=== PATIENT | female | born 1930 | race Caucasian/White ===

== ENCOUNTER 2017-02-11 13:19 | Emergency (ER) | payer MEDICARE, BC ==
[2017-02-11 13:50] VITALS: BP 142/78
--- NOTE | 2017-02-11 14:31 | EDM.PDOC ---
ED HISTORY OF PRESENT ILLNESS - General Chief Complaint: Cardiovascular Problem Stated Complaint: DIZZINESS Time Seen by Provider: 02/11/17 13:35 Source: Reports: Patient History Limitations: Reports: No limitations - History of Present Illness INITIAL COMMENTS - FREE TEXT/NARRATIVE: According to patient she claims that she started feeling weak and tired around 10 am today, every time she stood up and walked would feel dizzy, but no loss of consciousness, no syncope, no chest pain or shortness of breath. No sweating or incontinence. She claims she felt very short episodes of palpitations. Her biological sciences instructor recently had told her she was in afib , during her last visit with him. Hence she is concerned and called EMT to get her to hospital. Presently she has been asymptomatic for the time she is in the emergency room, and her her heart rate is 68/min and blood pressure is 146/78mmhg. She is in sinus rhythm Symptom Onset Date: 02/11/17 Symptom Onset Time: 10:00 - Related Data Allergies/ADRs: Allergies Allergy/AdvReac Type Severity Reaction Status Date / Time No Known Allergies Allergy Verified 02/11/17 13:30 Home Meds: Home Meds Fish Oil/Coyle-3 Fatty Acids [Fish Oil 1,000 MG] 1,000 mg PO DAILY@1200 [History] Gluc/Neymar-Msm#2/C/D3/Octavio/Born [Xyygvyedat-Orsxskvlccw-SBQ] 1 each PO DAILY@ 1200 04/20/15 [History] Levothyroxine [Synthroid] 100 mcg PO ACBREAKFAST 04/20/15 [History] Multivitamin [Multi-Vitamin Daily] 1 tab PO DAILY 04/20/15 [History] Omeprazole 20 mg PO ACBREAKFAST 04/20/15 [History] Sotalol [Betapace, Sorine] 80 mg PO BID 03/04/16 [History] Aspirin [Arslan Chewable] 81 mg PO QPM 02/11/17 [History] Calcium Carbonate/Vitamin D3 [Caltrate 600+D 1500 MG-400 Units] 1 tab PO DAILY@ 0800,1200 02/11/17 [History] Docusate Sodium [Colace] 100 mg PO BID PRN 02/11/17 [History] Loratadine [Claritin] 10 mg PO DAILY PRN 02/11/17 [History] Losartan [Cozaar] 75 mg PO QPM 02/11/17 [History] Magnesium Oxide [Magnesium] 500 mg PO DAILY 02/11/17 [History] Past Medical History HEENT History: Reports: Impaired vision Other HEENT History: 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 Can't pass vision test for driving- has to wear glasses for driving but no problem reading signs etc. Cardiovascular History: Reports: Afib, Bypass, High cholesterol, Hypertension, [place] Other Cardiovascular History: Has history of aortic stenosis, history of triple bypass surgery. Implant EKG. Constricted aorta. Respiratory History: Reports: None Gastrointestinal History: Reports: Diverticulosis, Hiatal hernia Other Gastrointestinal History: History of mass at the top of her stomach, had a gastro or colon (patient not sure which), also had barium x-ray. Neither showed anything and was found to be benign. Also has diverticuli in colon. 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: Musculoskeletal History: Reports: Fracture, Osteoporosis Other Musculoskeletal History: Osteoarthritis, fx R humerous, pelvis, tear in R shoulder tendon, trigger finger middle fingers L hand starting on R Neurological History: Reports: None Psychiatric History: Reports: Anxiety Endocrine/Metabolic History: Reports: Other (see below) Other Endocrine/Metabolic History: Josseline's thryoiditis Hematologic History: Reports: Anemia, Blood transfusion(s) Other Hematologic History: Anemia has had 7 transfusions between labor and heart surgery Immunologic History: Reports: None Oncologic (Cancer) History: Reports: Other (see below) Other Oncologic History: Basal cell in L eye Dermatologic History: Reports: Other (see below) Other Dermatologic History: Basal cell was in left eye. - Infectious Disease History Infectious Disease History: Reports: Chicken pox, Measles, Mumps - Past Surgical History GI Surgical History: Reports: Colonoscopy Female Surgical History: Reports: None Neurological Surgical History: Reports: None Social & Family History - Family History Family Medical History: Noncontributory - Tobacco Use Smoking Status *Q: Never Smoker Second Hand Smoke Exposure: No - Alcohol Use Days Per Week of Alcohol Use: 1 Number of Drinks Per Day: 0 Total Drinks Per Week: 0 - Recreational Drug Use Recreational Drug Use: No ED ROS GENERAL - Review of Systems Review Of Systems: See Below Constitutional: Reports: weakness. Denies: fever, chills, diaphoresis HEENT: Denies: Rhinitis, Sinus problem Respiratory: Denies: Shortness of Breath, Wheezing, Cough, Sputum Cardiovascular: Reports: Palpitations. Denies: Chest pain, Lightheadedness GI/Abdominal: Denies: Abdominal pain, Nausea, Vomiting : Denies: discharge, dysuria Musculoskeletal: Denies: shoulder pain, joint pain, joint swelling Skin: Denies: pruritis, rash Psychiatric: Denies: Anxiety, Cravings Hematologic/Lymphatic: Denies: anemia, easy bleeding ED EXAM, GENERAL - Physical Exam Exam: See Below Exam Limited By: No limitations General Appearance: alert, WD/WN, no apparent distress Eye Exam: bilateral eye: EOMI, PERRL Ears: normal external exam, normal canal, hearing grossly normal, normal TMs Ear Exam: bilateral ear: auricle normal, canal normal, TM normal Nose: normal inspection, normal mucosa, no blood Throat/Mouth: Normal inspection, Normal lips, Normal teeth, Normal gums, Normal oropharynx, Normal voice, No airway compromise Head: atraumatic, normocephalic Neck: normal inspection, supple, non-tender, full range of motion Respiratory/Chest: no respiratory distress, lungs clear, normal breath sounds, no accessory muscle use, chest non-tender Cardiovascular: normal peripheral pulses, regular rate, rhythm, no edema, no gallop, no JVD, no rub, systolic murmur (over precardium grade 3/6) Peripheral Pulses: 2+: carotid (L), carotid (R), radial (L), radial (R) GI/Abdominal: normal bowel sounds, soft, non tender, no organomegaly, no distention, no abnormal bruit, no mass Extremities: normal inspection, normal range of motion, non-tender, normal capillary refill, no pedal edema Neurological: alert, oriented, CN II-XII intact, normal cognition, normal gait, normal reflexes, no motor/sensory deficits EKG INTERPRETATION EKG Date: 02/11/17 Rhythm: NSR Rate (beats/min): 64 [place]: normal QRS: normal ST-T: normal QT: normal Course - Vital Signs Text/Narrative:: Pt has been asymptomatic since she has been in the emergency room. Her heart rate is in 60s-70s. EKG is in NSR, with no acute changes. Vitals are stable. I really do not know if she wa having SVT episodes in the morning or what, but the rhythm from her description of feeling tired does not appear like a malignant rhythm as this episode was transient and was not asso with syncope, severe palpations, shortness or breath or chest pain , nausea, vomiting or sweating and resolved. presently her labs are normal. her tropinin is negative. Chance of acute cardiac injury is low. Pt was made to walk in the emergency room to see if she does get racing heart rate or palpations.She does have normal physiological changes in her heart rate, which is slightly blunted from her sotolol. Her calcium is low at 4.6, which does appear like a technical error, pt does not have any signs of hypocalcemia and does take 100mg calcium daily. Pt advised to increse4 dairy products for 2 wks and repeat calcium level in 2 wks. Last Recorded V/S: Last Vital Signs Temp 96.9 F 02/11/17 13:35 Pulse 64 02/11/17 13:35 Resp 18 02/11/17 13:35 BP 142/78 H 02/11/17 13:35 Pulse Ox 98 02/11/17 13:35 - Orders/Labs/Meds Orders: Active Orders 24 hr Category Date Time Status EKG Documentation Completion [RC] ASDIRECTED Care 02/11/17 14:23 Ordered Labs: Laboratory Tests 02/11/17 02/11/17 02/11/17 Range/Units 14:20 14:20 15:43 WBC 8.3 (4.0-11.0) K/uL RBC 4.75 (3.80-5.80) M/uL Hgb 10.3 L (11.5-16.5) g/dL Hct 30.6 L (37.0-47.0) % MCV 64 L (76-96) fL MCH 21.7 L (27.0-32.0) pg MCHC 33.7 (31.0-35.0) g/dL RDW 17.0 H (11.0-16.0) % Plt Count 240 (150-500) K/uL MPV 9.3 (6.0-10.0) fL Neut % (Auto) 67.2 (45.0-70.0) % Lymph % (Auto) 21.2 (20.0-40.0) % [place] % (Auto) 9.8 (3.0-10.0) % Eos % (Auto) 1.1 (1.0-5.0) % Baso % (Auto) 0.7 H (0.0-0.5) % Neut # 5.59 (2.00-7.50) K/uL Lymph # 1.77 (1.50-4.00) K/uL [place] # 0.82 H (0.20-0.80) K/uL Eos # 0.09 (0.04-0.40) K/uL Baso # 0.06 (0.02-0.10) K/uL Sodium 134 L (136-145) mmol/L Potassium 4.1 D (3.5-5.1) mmol/L Chloride 95 L (98-107) mmol/L Carbon Dioxide 27.0 (21.0-32.0) mmol/L Anion Gap 16.1 H (5.0-15.0) mmol/L BUN 15 D (8-26) mg/dL Creatinine 0.60 (0.55-1.02) mg/dL Est Cr Clr Drug Dosing TNP Estimated GFR (MDRD) > 60 (>60) MLS/MIN BUN/Creatinine Ratio 25.0 (6-25) Glucose 107 H (74-100) mg/dL Calcium 4.6 L* (8.5-10.1) mg/dL Troponin I 0.020 D (0.000-0.060) ng/mL Departure - Departure Time of Disposition: 16:00 Disposition: Home, Self-Care 01 Condition: fair Clinical Impression: Dizziness Forms: ED Department Discharge - Problem List & Annotations (1) Dizziness SNOMED Code(s): 022633855, 347669097 Code(s): R42 - DIZZINESS AND GIDDINESS Status: Acute Current Visit: Yes - Problem List Review Problem List Initiated/Reviewed/Updated: Yes - My Orders Last 24 Hours: My Active Orders 02/11/17 14:23 EKG Documentation Completion [RC] ASDIRECTED - Assessment/Plan Last 24 Hours: My Active Orders 02/11/17 14:23 EKG Documentation Completion [RC] ASDIRECTED Assessment:: Weakness with dizziness today morning Plan: Pt has been asymptomatic since she has been in the emergency room. Her heart rate is in 60s-70s. EKG is in NSR, with no acute changes. Vitals are stable. I really do not know if she wa having SVT episodes in the morning or what, but the rhythm from her description of feeling tired does not appear like a malignant rhythm as this episode was transient and was not asso with syncope, severe palpations, shortness or breath or chest pain , nausea, vomiting or sweating and resolved. presently her labs are normal. her tropinin is negative. Chance of acute cardiac injury is low. Pt was made to walk in the emergency room to see if she does get racing heart rate or palpations.She does have normal physiological changes in her heart rate, which is slightly blunted from her sotolol. Her calcium is low at 4.6, which does appear like a technical error, pt does not have any signs of hypocalcemia and does take 100mg calcium daily. Pt advised to increase dairy products for 2 wks and repeat calcium level in 2 wks.
== END 2017-02-11 16:13 | disposition home or self-care (01) ==
LOC: LB.ED 13:19
DX: R42 Dizziness and giddiness (principal); I48.91 Unspecified atrial fibrillation; E78.00 Pure hypercholesterolemia, unspecified; I25.2 Old myocardial infarction; I10 Essential (primary) hypertension; M19.90 Unspecified osteoarthritis, unspecified site; F41.9 Anxiety disorder, unspecified; Z79.82 Long term (current) use of aspirin; Z79.899 Other long term (current) drug therapy; Z86.2 Personal history of diseases of the blood and blood-forming organs and certain disorders involving the immune mechanism
CPT/HCPCS: 36415; 80047; 80048; 84484; 85025; 93005; 99284; 99285-25; A0425; A0429

== ENCOUNTER 2017-07-17 11:54 | Emergency (ER) | payer MEDICARE, BC ==
[2017-07-17] MEDS ORDERED: Aspirin 81 MG Tab.Chew PO ONE (12:12)
[2017-07-17] MEDS ORDERED: Enoxaparin 60 MG/0.6 ML Syringe SUBCUT ONE (12:17)
[2017-07-17 13:15] VITALS: BP 178/63
--- NOTE | 2017-07-20 17:10 | EDM.PDOC ---
ED HPI GENERAL MEDICAL PROBLEM - General Chief Complaint: Cardiovascular Problem Stated Complaint: Shortness of breath Time Seen by Provider: 07/17/17 11:55 Source of Information: Reports: Patient, Old Records History Limitations: Reports: No Limitations - History of Present Illness INITIAL COMMENTS - FREE TEXT/NARRATIVE: This is a pleasant 86yo F seen at the clinic for complaints of sob last night and feeling that she may . She states she feels much better today and basically normal. She was worked up in the clinic and found to have a NSTEMI. She was transferred to the ED for management and further treatment and transfer. Onset Date: 07/16/17 Duration: Day(s): Location: Reports: Chest, Generalized Severity: Moderate Improves with: Reports: None Worsens with: Reports: None Associated Symptoms: Reports: Shortness of Breath, Weakness - Related Data Allergies Allergy/AdvReac Type Severity Reaction Status Date / Time No Known Allergies Allergy Verified 02/11/17 13:30 Home Meds: Home Meds Fish Oil/[place]ills-3 Fatty Acids [Fish Oil 1,000 MG] 1,000 mg PO DAILY@1200 [History] Gluc/Neymar-Msm#2/C/D3/Octavio/Born [Maiiaapaht-Muupfllyzka-XER] 1 each PO DAILY@ 1200 04/20/15 [History] Levothyroxine [Synthroid] 100 mcg PO ACBREAKFAST 04/20/15 [History] Multivitamin [Multi-Vitamin Daily] 1 tab PO DAILY 04/20/15 [History] Omeprazole 20 mg PO ACBREAKFAST 04/20/15 [History] Calcium Carbonate/Vitamin D3 [Caltrate 600+D 1500 MG-400 Units] 1 tab PO DAILY@ 0800,1200 02/11/17 [History] Docusate Sodium [Colace] 100 mg PO BID PRN 02/11/17 [History] Losartan [Cozaar] 75 mg PO QPM 02/11/17 [History] Magnesium Oxide [Magnesium] 500 mg PO DAILY 02/11/17 [History] Ibandronate Sodium 150 mg PO DAILY 04/06/17 [History] Lactobacillus Combo No.10 [Probiotic] 1 each PO DAILY 04/06/17 [History] Sotalol [Betapace] 120 mg PO BID 07/17/17 [History] Past Medical History HEENT History: Reports: Impaired Vision Other HEENT History: 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 Can't pass vision test for driving- has to wear glasses for driving but no problem reading signs etc. Cardiovascular History: Reports: Afib, Bypass, High Cholesterol, Hypertension, [place] Other Cardiovascular History: Has history of aortic stenosis, history of triple bypass surgery. Implant EKG. Constricted aorta. Respiratory History: Reports: None Gastrointestinal History: Reports: Diverticulosis, Hiatal Hernia Other Gastrointestinal History: History of mass at the top of her stomach, had a gastro or colon (patient not sure which), also had barium x-ray. Neither showed anything and was found to be benign. Also has diverticuli in colon. 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: Musculoskeletal History: Reports: Fracture, Osteoporosis Other Musculoskeletal History: Osteoarthritis, fx R humerous, pelvis, tear in R shoulder tendon, trigger finger middle fingers L hand starting on R Neurological History: Reports: None Psychiatric History: Reports: Anxiety Endocrine/Metabolic History: Reports: Other (See Below) Other Endocrine/Metabolic History: Josseline's thryoiditis Hematologic History: Reports: Anemia, Blood Transfusion(s) Other Hematologic History: Anemia has had 7 transfusions between labor and heart surgery Immunologic History: Reports: None Oncologic (Cancer) History: Reports: Other (See Below) Other Oncologic History: Basal cell in L eye Dermatologic History: Reports: Other (See Below) Other Dermatologic History: Basal cell was in left eye. - Infectious Disease History Infectious Disease History: Reports: Chicken Pox, Measles, Mumps - Past Surgical History GI Surgical History: Reports: Colonoscopy Female Surgical History: Reports: None Neurological Surgical History: Reports: None Social & Family History - Family History Family Medical History: Noncontributory - Tobacco Use Smoking Status *Q: Never Smoker Second Hand Smoke Exposure: No - Alcohol Use Days Per Week of Alcohol Use: 1 Number of Drinks Per Day: 0 Total Drinks Per Week: 0 - Recreational Drug Use Recreational Drug Use: No ED ROS GENERAL - Review of Systems Review Of Systems: ROS reveals no pertinent complaints other than HPI. ED EXAM, GENERAL - Physical Exam Exam: See Below Exam Limited By: No Limitations General Appearance: Alert, WD/WN, No Apparent Distress Eye Exam: Bilateral Eye: EOMI, PERRL Ears: Normal External Exam Nose: Normal Inspection Throat/Mouth: Normal Inspection Head: Atraumatic, Normocephalic Neck: Normal Inspection, Supple, Non-Tender Respiratory/Chest: No Respiratory Distress, Lungs Clear, Normal Breath Sounds Cardiovascular: Normal Peripheral Pulses, Regular Rate, Rhythm GI/Abdominal: Normal Bowel Sounds Extremities: Normal Inspection Neurological: Alert, Oriented, CN II-XII Intact Course - Vital Signs Last Recorded V/S: Last Vital Signs Temp 36.9 C 07/17/17 13:11 Pulse 58 L 07/17/17 13:11 Resp 20 07/17/17 13:11 BP 178/63 H 07/17/17 13:11 Pulse Ox 100 07/17/17 13:11 - Orders/Labs/Meds Meds: Medications Discontinued Medications Generic Name Dose Route Start Last Admin Trade Name Darlyn PRN Reason Stop Dose Admin Aspirin 324 mg 07/17/17 12:12 07/17/17 12:15 Aspirin PO 07/17/17 12:13 324 mg ONETIME ONE Administration Enoxaparin Sodium 60 mg 07/17/17 12:17 07/17/17 12:35 Lovenox SUBCUT 07/17/17 12:18 60 mg ONETIME ONE Administration Departure - Departure Time of Disposition: 14:00 Disposition: DC/Tfer to Acute Hospital 02 Reason for Transfer *Q: Primary PCI Indicated Condition: Good Clinical Impression: Non-STEMI (non-ST elevated myocardial infarction) Referrals: PCP,None [Primary Care Provider] - Forms: ED Department Discharge - Problem List Review Problem List Initiated/Reviewed/Updated: Yes - Assessment/Plan Plan: Patient counseled on plan of care. Discussed with Hospitalist and accepting provider. Patient to be transferred to telemtery. Discussed plan with patient and daughter and explained process and f/u. Family agree with plan of care.
== END 2017-07-17 13:11 ==
LOC: LB.ED 11:54
DX: I21.4 Non-ST elevation (NSTEMI) myocardial infarction (principal); I10 Essential (primary) hypertension; I25.2 Old myocardial infarction; E78.00 Pure hypercholesterolemia, unspecified; M81.0 Age-related osteoporosis without current pathological fracture; M19.90 Unspecified osteoarthritis, unspecified site; Z86.2 Personal history of diseases of the blood and blood-forming organs and certain disorders involving the immune mechanism; Z85.828 Personal history of other malignant neoplasm of skin; Z98.890 Other specified postprocedural states; Z79.899 Other long term (current) drug therapy; R09.89 Other specified symptoms and signs involving the circulatory and respiratory systems; R06.02 Shortness of breath
CPT/HCPCS: 36415; 71020; 80048; 83880; 84484; 85025; 93005; 96372; 99285; A0429; A0888; A9270; J1650; A0425

== ENCOUNTER 2017-07-22 09:37 | Emergency (ER) | payer MEDICARE, BC ==
[2017-07-22] MEDS ORDERED: LORazepam 2 MG/ML MDV IVPUSH ONE (10:20)
[2017-07-22] MEDS ORDERED: Iopamidol 612 MG/ML 100 ML Bottle IV PRN (10:35)
[2017-07-22] MEDS ORDERED: Sodium Chloride 0.9% 50 ML SDV FLUSH ONE (10:36)
--- NOTE | 2017-07-22 10:44 | EDM.PDOC ---
ED HPI GENERAL MEDICAL PROBLEM - General Stated Complaint: TWITCHING ARM Time Seen by Provider: 07/22/17 09:40 Source of Information: Reports: Patient History Limitations: Reports: No Limitations - History of Present Illness INITIAL COMMENTS - FREE TEXT/NARRATIVE: According to patient she claims that she was fine until 9:15 today, when she started having sudden onset of twitching of her left upper extremity, which she claims lasted for about 7 minutes before it resolved.Pt was awake and alert all through the episode. the twitching resolved by itself. Pt called ambulance. Pt was feeling fine when the EMT arrived. Pt is here in the emergency room, she claims she has no chest pain of chest discomfort. No SOB. Appears anxious.No fever or c hills. Pt did start having significant spasms of the left upper extremity, her left arm was flexed and having contraction of the left upper extremity, but she was awake all through the episode. No nausea, vomiting. No blurry vision or double vision. Pt had NonSTEMI last sunday. She had cardiac cath last sunday.Pt was seen by her occupational therapist aide, . 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 She has been started on amiodorone, plavix, xarelto, HCTZ, norvasc since sunday ( 2 days ago). Onset: Today Onset Date: 07/22/17 Onset Time: 09:15 Associated Symptoms: Reports: Seizure. Denies: Confusion, Chest Pain, Cough, Diaphoresis, Fever/Chills, Headaches, Loss of Appetite, Malaise, Nausea/Vomiting , Rash, Shortness of Breath, Syncope, Weakness - Related Data Allergies Allergy/AdvReac Type Severity Reaction Status Date / Time No Known Allergies Allergy Verified 02/11/17 13:30 Home Meds: Home Meds Fish Oil/Plato-3 Fatty Acids [Fish Oil 1,000 MG] 1,000 mg PO DAILY@1200 [History] Gluc/Neymar-Msm#2/C/D3/Octavio/Born [Twyopklyyb-Pdzswcngscu-GTQ] 1 each PO DAILY@ 1200 04/20/15 [History] Levothyroxine [Synthroid] 100 mcg PO ACBREAKFAST 04/20/15 [History] Multivitamin [Multi-Vitamin Daily] 1 tab PO DAILY 04/20/15 [History] Omeprazole 20 mg PO ACBREAKFAST 04/20/15 [History] Calcium Carbonate/Vitamin D3 [Caltrate 600+D 1500 MG-400 Units] 1 tab PO DAILY@ 0800,1200 02/11/17 [History] Docusate Sodium [Colace] 100 mg PO BID PRN 02/11/17 [History] Losartan [Cozaar] 75 mg PO QPM 02/11/17 [History] Magnesium Oxide [Magnesium] 500 mg PO DAILY 02/11/17 [History] Ibandronate Sodium 150 mg PO DAILY 04/06/17 [History] Lactobacillus Combo No.10 [Probiotic] 1 each PO DAILY 04/06/17 [History] Sotalol [Betapace] 120 mg PO BID 07/17/17 [History] Past Medical History HEENT History: Reports: Impaired Vision Other HEENT History: 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 Can't pass vision test for driving- has to wear glasses for driving but no problem reading signs etc. Cardiovascular History: Reports: Afib, Bypass, High Cholesterol, Hypertension, [place] Other Cardiovascular History: Has history of aortic stenosis, history of triple bypass surgery. Implant EKG. Constricted aorta. Respiratory History: Reports: None Gastrointestinal History: Reports: Diverticulosis, Hiatal Hernia Other Gastrointestinal History: History of mass at the top of her stomach, had a gastro or colon (patient not sure which), also had barium x-ray. Neither showed anything and was found to be benign. Also has diverticuli in colon. 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: Reports: Musculoskeletal History: Reports: Fracture, Osteoporosis Other Musculoskeletal History: Osteoarthritis, fx R humerous, pelvis, tear in R shoulder tendon, trigger finger middle fingers L hand starting on R Neurological History: Reports: None Psychiatric History: Reports: Anxiety Endocrine/Metabolic History: Reports: Other (See Below) Other Endocrine/Metabolic History: Josseline's thryoiditis Hematologic History: Reports: Anemia, Blood Transfusion(s) Other Hematologic History: Anemia has had 7 transfusions between labor and heart surgery Immunologic History: Reports: None Oncologic (Cancer) History: Reports: Other (See Below) Other Oncologic History: Basal cell in L eye Dermatologic History: Reports: Other (See Below) Other Dermatologic History: Basal cell was in left eye. - Infectious Disease History Infectious Disease History: Reports: Chicken Pox, Measles, Mumps - Past Surgical History GI Surgical History: Reports: Colonoscopy Female Surgical History: Reports: None Neurological Surgical History: Reports: None Social & Family History - Family History Family Medical History: Noncontributory - Tobacco Use Smoking Status *Q: Never Smoker Second Hand Smoke Exposure: No - Alcohol Use Days Per Week of Alcohol Use: 1 Number of Drinks Per Day: 0 Total Drinks Per Week: 0 - Recreational Drug Use Recreational Drug Use: No ED ROS GENERAL - Review of Systems Review Of Systems: See Below Constitutional: Denies: Fever, Chills, Fatigue HEENT: Denies: Glasses, Hearing Loss, Rhinitis, Throat Pain, Throat Swelling Respiratory: Denies: Cough, Sputum Cardiovascular: Denies: Chest Pain, Edema, Lightheadedness GI/Abdominal: Denies: Abdominal Pain, Anorexia, Nausea, Vomiting : Denies: Dysuria, Flank Pain Musculoskeletal: Denies: Joint Pain, Joint Swelling Skin: Denies: Pruritis, Rash Neurological: Reports: Tremors. Denies: Confusion, Dizziness, Headache, Syncope , Tingling, Trouble Speaking, Weakness, Change in Speech, Gait Disturbance Psychiatric: Reports: Anxiety. Denies: Agitation, Confusion ED EXAM, GENERAL - Physical Exam Exam: See Below Exam Limited By: No Limitations General Appearance: Alert, WD/WN, No Apparent Distress Eye Exam: Bilateral Eye: EOMI, PERRL Ears: Normal External Exam, Normal Canal, Hearing Grossly Normal, Normal TMs Ear Exam: Bilateral Ear: Auricle Normal, Canal Normal, TM normal Nose: Normal Inspection, Normal Mucosa, No Blood Throat/Mouth: Normal Inspection, Normal Lips, Normal Teeth, Normal Gums, Normal Oropharynx, Normal Voice, No Airway Compromise Head: Atraumatic, Normocephalic Neck: Normal Inspection, Supple, Non-Tender, Full Range of Motion Respiratory/Chest: No Respiratory Distress, Lungs Clear, Normal Breath Sounds, No Accessory Muscle Use, Chest Non-Tender Cardiovascular: Normal Peripheral Pulses, Regular Rate, Rhythm, No Edema, No Gallop, No JVD, No Rub, Systolic Murmur (ejection systolic murmur in aortic area , grade 3/6, with radaition to carotids b/l) Peripheral Pulses: 2+: Radial (L), Radial (R), Dorsalis Pedis (L), Dorsalis Pedis (R) GI/Abdominal: Normal Bowel Sounds, Soft, Non-Tender, No Organomegaly, No Distention, No Abnormal Bruit, No Mass Extremities: Normal Inspection, Normal Range of Motion, Non-Tender, Normal Capillary Refill, No Pedal Edema Neurological: Alert, Oriented, CN II-XII Intact, Normal Cognition, Normal Gait, Normal Reflexes, No Motor/Sensory Deficits, Sensory/Motor Deficit (Pt carter have muscle power 4/5 in the left upper extremity.), Other (Pt did have episoe of left upper extremity clonic spasms for about 12 minutes , she waws awake and alert through the spiode. Did give 2mg ativan IV and it resolved. Pt is awake and alert post episode.) Psychiatric: Normal Affect, Anxious Skin Exam: Warm, Intact EKG INTERPRETATION EKG Date: 07/22/17 Rhythm: NSR Rate (Beats/Min): 74 [place]: LAD-Left Lockwood Deviation P-Wave: Present QRS: Normal ST-T: Normal QT: Normal Comparison: No Change Course - Vital Signs Text/Narrative:: 10:00 Am: Pt apparently is having left upper extremity localized clonic spasm. She is alert and awake all through the episode. she did receive ativan 2mg IV stat and the episode resolved. she does not have any cardiac symptoms. Apparently she has been started on several new meds( Amiodorone, plavix, xarelto , HCTZ, norvasc), 3 days ago by her occupational therapist aide. She is on on 2 new blood thinners, xarelto and palvix. Her EKG is in NSR with rate of 74/min. My concern is if she is having a small intracranial bleed with irritation involving the left upper extremity motor region. Also I have ordered electrolytes, ,CBC, troponin on this patient. Pt is stable and her vitals are stable now. 11:00 AM CBC, PT, INR, PTT. BMP shows mild decrease in sodium of 130. Her troponin is mildly elevated from her recent cardiac cath few days ago.CT head was done which does show a moderate size bleed 2.5 by 1.5 cm in the right frontal region of the brain. The cause seems to be the anticoagulation as that is the only thing to suspect at this time. There has been no trauma or fall asso. I did discuss the findings with Patient who is alert and also with her son.Patient needs to be transferred to tertiary center for further care. I did discuss with Dr. Hernandez the Emergency room physician, who does agree to accept patient. Pt will be transferred by Air ambulance through [facility] air ambulance. Pt has been neurologically and hemodynamically stable all through the emergency room care. Further care as per Dr. Hernandez. Last Recorded V/S: Last Vital Signs Temp 98 F 07/22/17 11:41 Pulse 95 07/22/17 11:41 Resp 16 07/22/17 11:41 BP 164/80 H 07/22/17 11:41 Pulse Ox 95 07/22/17 11:41 - Orders/Labs/Meds Orders: Active Orders 24 hr Category Date Time Status EKG Documentation Completion [RC] ASDIRECTED Care 07/22/17 10:23 Ordered Head wo Cont [CT] Stat Exams 07/22/17 10:55 Taken INR,PT,PROTHROMBIN TIME [COAG] Stat Lab 07/22/17 11:10 Uncollected PTT,PARTIAL THROMBOPLSTIN TIME [COAG] Stat Lab 07/22/17 11:10 Uncollected Iopamidol [Isovue-300 (61%)] Med 07/22/17 10:35 Active 100 ml IV . DIRECTED PRN Medication Orders Iopamidol (Isovue-300 (61%)) 100 ml IV . DIRECTED PRN PRN Reason: RADIOLOGY EXAM Stop: 07/23/17 10:36 Labs: Laboratory Tests 07/22/17 07/22/17 07/22/17 Range/Units 10:25 10:25 10:25 WBC 11.7 H (4.0-11.0) K/uL RBC 5.80 (3.80-5.80) M/uL Hgb 12.2 (11.5-16.5) g/dL Hct 35.7 L (37.0-47.0) % MCV 62 L (76-96) fL MCH 21.0 L (27.0-32.0) pg MCHC 34.2 (31.0-35.0) g/dL RDW 18.9 H (11.0-16.0) % Plt Count 340 (150-500) K/uL MPV 9.4 (6.0-10.0) fL Neut % (Auto) 60.5 (45.0-70.0) % Lymph % (Auto) 27.3 (20.0-40.0) % Gilchrist % (Auto) 10.5 H (3.0-10.0) % Eos % (Auto) 1.2 (1.0-5.0) % Baso % (Auto) 0.5 (0.0-0.5) % Neut # (Auto) 7.06 (2.00-7.50) K/uL Lymph # (Auto) 3.19 (1.50-4.00) K/uL Gilchrist # (Auto) 1.23 H (0.20-0.80) K/uL Eos # (Auto) 0.14 (0.04-0.40) K/uL Baso # (Auto) 0.06 (0.02-0.10) K/uL PT (9.0-11.5) sec INR (1.0-3.5) APTT (27.0-35.0) SECONDS POC Sodium 130 L (136-145) mmol/L POC Potassium 4.2 (3.5-5.1) mmol/L POC Chloride 90 L (98-109) mmol/L POC Total CO2 26.0 (23.0-30.0) mmol/L POC Anion Gap 20.0 H (5.0-15.0) mmol/L POC BUN 13 (8-26) mg/dL POC Creatinine 0.7 (0.5-1.2) mg/dL POC Glucose 121 H (74-100) mg/dL POC WB Ioniz Calcium 4.4 L (4.5-5.3) mg/dL Troponin I 0.104 H* D (0.000-0.060) ng/mL 07/22/17 Range/Units 10:25 WBC (4.0-11.0) K/uL RBC (3.80-5.80) M/uL Hgb (11.5-16.5) g/dL Hct (37.0-47.0) % MCV (76-96) fL MCH (27.0-32.0) pg MCHC (31.0-35.0) g/dL RDW (11.0-16.0) % Plt Count (150-500) K/uL MPV (6.0-10.0) fL Neut % (Auto) (45.0-70.0) % Lymph % (Auto) (20.0-40.0) % Gilchrist % (Auto) (3.0-10.0) % Eos % (Auto) (1.0-5.0) % Baso % (Auto) (0.0-0.5) % Neut # (Auto) (2.00-7.50) K/uL Lymph # (Auto) (1.50-4.00) K/uL Gilchrist # (Auto) (0.20-0.80) K/uL Eos # (Auto) (0.04-0.40) K/uL Baso # (Auto) (0.02-0.10) K/uL PT 10.6 (9.0-11.5) sec INR 1.1 (1.0-3.5) APTT 27.9 (27.0-35.0) SECONDS POC Sodium (136-145) mmol/L POC Potassium (3.5-5.1) mmol/L POC Chloride (98-109) mmol/L POC Total CO2 (23.0-30.0) mmol/L POC Anion Gap (5.0-15.0) mmol/L POC BUN (8-26) mg/dL POC Creatinine (0.5-1.2) mg/dL POC Glucose (74-100) mg/dL POC WB Ioniz Calcium (4.5-5.3) mg/dL Troponin I (0.000-0.060) ng/mL Meds: Medications Generic Name Dose Route Start Last Admin Trade Name Freq PRN Reason Stop Dose Admin Iopamidol 100 ml 07/22/17 10:35 Isovue-300 (61%) IV 07/23/17 10:36 . DIRECTED PRN RADIOLOGY EXAM Discontinued Medications Generic Name Dose Route Start Last Admin Trade Name Freq PRN Reason Stop Dose Admin Lorazepam 2 mg 07/22/17 10:20 07/22/17 10:25 Ativan IVPUSH 07/22/17 10:21 2 mg ONETIME ONE Administration Sodium Chloride 50 ml 07/22/17 10:36 Normal Saline FLUSH 07/22/17 10:37 ONETIME ONE Departure - Departure Time of Disposition: 13:00 Disposition: DC/Tfer to Acute Hospital 02 Condition: Fair Clinical Impression: Acute intra-cranial hemorrhage - Discharge Information Referrals: PCP,None [Primary Care Provider] - - Problem List & Annotations (1) Acute intra-cranial hemorrhage SNOMED Code(s): 7230208 Code(s): I62.9 - NONTRAUMATIC INTRACRANIAL HEMORRHAGE, UNSPECIFIED Status: Acute Current Visit: Yes - Problem List Review Problem List Initiated/Reviewed/Updated: Yes - My Orders Last 24 Hours: My Active Orders 07/22/17 10:23 EKG Documentation Completion [RC] ASDIRECTED 07/22/17 10:35 Iopamidol [Isovue-300 (61%)] 100 ml IV . DIRECTED PRN 07/22/17 10:55 Head wo Cont [CT] Stat 07/22/17 11:10 INR,PT,PROTHROMBIN TIME [COAG] Stat PTT,PARTIAL THROMBOPLSTIN TIME [COAG] Stat - Assessment/Plan Last 24 Hours: My Active Orders 07/22/17 10:23 EKG Documentation Completion [RC] ASDIRECTED 07/22/17 10:35 Iopamidol [Isovue-300 (61%)] 100 ml IV . DIRECTED PRN 07/22/17 10:55 Head wo Cont [CT] Stat 07/22/17 11:10 INR,PT,PROTHROMBIN TIME [COAG] Stat PTT,PARTIAL THROMBOPLSTIN TIME [COAG] Stat Assessment:: Acute right frontal intracranial bleed Plan: 10:00 Am: Pt apparently is having left upper extremity localized clonic spasm. She is alert and awake all through the episode. she did receive ativan 2mg IV stat and the episode resolved. she does not have any cardiac symptoms. Apparently she has been started on several new meds( Amiodorone, plavix, xarelto , HCTZ, norvasc), 3 days ago by her occupational therapist aide. She is on on 2 new blood thinners, xarelto and palvix. Her EKG is in NSR with rate of 74/min. My concern is if she is having a small intracranial bleed with irritation involving the left upper extremity motor region. Also I have ordered electrolytes, ,CBC, troponin on this patient. Pt is stable and her vitals are stable now. 11:00 AM CBC, PT, INR, PTT. BMP shows mild decrease in sodium of 130. Her troponin is mildly elevated from her recent cardiac cath few days ago.CT head was done which does show a moderate size bleed 2.5 by 1.5 cm in the right frontal region of the brain. The cause seems to be the anticoagulation as that is the only thing to suspect at this time. There has been no trauma or fall asso. I did discuss the findings with Patient who is alert and also with her son.Patient needs to be transferred to tertiary center for further care. I did discuss with Dr. Hernandez the Emergency room physician at [facility], who does agree to accept patient. Pt will be transferred by Air ambulance through [facility] air ambulance. Pt has been neurologically and hemodynamically stable all through the emergency room care. Further care as per Dr. Hernandez.
[2017-07-22 11:42] VITALS: BP 164/80
--- NOTE | 2017-07-23 08:01 | CT ---
DATE OF SERVICE: 07/22/17 CLINICAL DATA: Left hand monoclonal UNENHANCED BRAIN CT: Multislice acquisition through the brain without IV contrast was performed. Comparison is made to a prior exam dated 09/18/16. There is an area of parenchymal hemorrhage within the right parietal region measuring 2.5 cm in its maximum diameter. There is also blood density material within the adjacent sulci. Minimal mass effect associated with this. The exam is otherwise unchanged from the prior. IMPRESSION: Intraparenchymal hemorrhage on the right with adjacent subarachnoid bleed. Minimal mass effect associated with this. The patient's physician was notified of the findings by telephone and by [facility] preliminary radiology report. [id number] [facility]
== END 2017-07-22 14:38 ==
LOC: LB.ED 09:37
DX: I62.9 Nontraumatic intracranial hemorrhage, unspecified (principal); M19.90 Unspecified osteoarthritis, unspecified site; I48.91 Unspecified atrial fibrillation; E78.00 Pure hypercholesterolemia, unspecified; I10 Essential (primary) hypertension; I25.2 Old myocardial infarction; M81.0 Age-related osteoporosis without current pathological fracture; F41.9 Anxiety disorder, unspecified; Z79.899 Other long term (current) drug therapy; Z86.79 Personal history of other diseases of the circulatory system
CPT/HCPCS: 36415; 70450; 80047; 84484; 85025; 85610; 85730; 93005; 96374; 99285; A0425; A0429; J2060

== ENCOUNTER 2017-07-25 08:38 | Inpatient (IN) | payer MEDICARE, BC ==
--- NOTE | 2017-07-25 17:44 | PCM.HP ---
H&P History of Present Illness - General Date of Service: 07/25/17 Admit Problem/Dx: Admission Diagnosis/Problem Admission Diagnosis/Problem Cerebral hemorrhage Source of Information: Patient History Limitations: Reports: No Limitations - History of Present Illness Initial Comments - Free Text/Narative: Pt is a pleasant 86 year old female who is admitted under swing bed level of care for physical , occupational and speech therapy. Pt was seen at [facility] for right intracerebral bleed, and was transferred to [facility] for acute monitoring. Apparently patient has had uneventful hospitalization. No more episodes of focal seizures and the bleed has not progressed. hence patient was discharged today and is admitted here for rehabilitation. Pt's xarelta, plavix and aspirin are stopped presently. has been started on Keppra for seizure prevention. Pt claims she feels fine. no headache, nausea or vomiting. Feels tired from the travel. - Related Data Allergies/Adverse Reactions: Allergies Allergy/AdvReac Type Severity Reaction Status Date / Time No Known Allergies Allergy Verified 07/25/17 13:54 Home Medications: Home Meds Levothyroxine [Synthroid] 100 mcg PO ACBREAKFAST 04/20/15 [History] Multivitamin [Multi-Vitamin Daily] 1 tab PO DAILY 04/20/15 [History] Omeprazole 20 mg PO ACBREAKFAST 04/20/15 [History] Docusate Sodium [Colace] 100 mg PO BEDTIME PRN 02/11/17 [History] Losartan [Cozaar] 50 mg PO BID 02/11/17 [History] Magnesium Oxide [Magnesium] 500 mg PO DAILY 02/11/17 [History] Amiodarone [Cordarone] 200 mg PO DAILY 07/22/17 [History] Hydrochlorothiazide 12.5 mg PO DAILY 07/22/17 [History] amLODIPine [Norvasc] 5 mg PO DAILY 07/22/17 [History] atorvaSTATin [Lipitor] 40 mg PO BEDTIME 07/22/17 [History] Calcium Carbonate [Calcium] 600 mg PO DAILY 07/25/17 [History] Ibandronate [Boniva] 150 mg PO DAILY 07/25/17 [History] Nitroglycerin 0.4 mg SL TID PRN 07/25/17 [History] Simvastatin [Zocor] 80 mg PO BEDTIME 07/25/17 [History] levETIRAcetam [Keppra] 500 mg PO BID 07/25/17 [History] Past Medical History HEENT History: Reports: Impaired Vision Other HEENT History: 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 Can't pass vision test for driving- has to wear glasses for driving but no problem reading signs etc. Cardiovascular History: Reports: Afib, Bypass, High Cholesterol, Hypertension, [place] Other Cardiovascular History: Has history of aortic stenosis, history of triple bypass surgery. Implant EKG. Constricted aorta. Respiratory History: Reports: None Gastrointestinal History: Reports: Diverticulosis, Hiatal Hernia Other Gastrointestinal History: History of mass at the top of her stomach, had a gastro or colon (patient not sure which), also had barium x-ray. Neither showed anything and was found to be benign. Also has diverticuli in colon. Genitourinary History: Reports: None ELDERLY COMPANION History: Reports: Musculoskeletal History: Reports: Fracture, Osteoporosis Other Musculoskeletal History: Osteoarthritis, fx R humerous, pelvis, tear in R shoulder tendon, trigger finger middle fingers L hand starting on R Neurological History: Reports: None Psychiatric History: Reports: Anxiety Endocrine/Metabolic History: Reports: Other (See Below) Other Endocrine/Metabolic History: Josseline's thryoiditis Hematologic History: Reports: Anemia, Blood Transfusion(s) Other Hematologic History: Anemia has had 7 transfusions between labor and heart surgery. Thalassanemia/thalassemia Immunologic History: Reports: None Oncologic (Cancer) History: Reports: Other (See Below) Other Oncologic History: Basal cell in L eye Dermatologic History: Reports: Other (See Below) Other Dermatologic History: Basal cell was in left eye. - Infectious Disease History Infectious Disease History: Reports: Chicken Pox, Measles, Mumps - Past Surgical History GI Surgical History: Reports: Colonoscopy Female Surgical History: Reports: None Neurological Surgical History: Reports: None Social & Family History - Family History Family Medical History: Noncontributory - Tobacco Use Smoking Status *Q: Never Smoker Second Hand Smoke Exposure: No - Caffeine Use Caffeine Use: Reports: Coffee Other Caffeine Use: decafinated 1-2 cups for breakfast - Alcohol Use Days Per Week of Alcohol Use: 1 Number of Drinks Per Day: 0 Total Drinks Per Week: 0 - Recreational Drug Use Recreational Drug Use: No H&P Review of Systems - Review of Systems: Review Of Systems: See Below General: Denies: Fever, Chills HEENT: Denies: Sore Throat, Visual Changes Pulmonary: Denies: Cough, Sputum Cardiovascular: Denies: Chest Pain, Palpitations, Lightheadedness Gastrointestinal: Denies: Abdominal Pain, Nausea, Vomiting Genitourinary: Denies: Frequency, Burning Musculoskeletal: Denies: Joint Pain, Joint Swelling Skin: Denies: Pruritis, Rash Psychiatric: Denies: Confusion Neurological: Denies: Confusion, Dizziness, Numbness, Tingling, Gait Disturbance Exam - Exam Exam: See Below - Vital Signs Vital Signs: Last Vital Signs Temp 98.4 F 07/25/17 11:36 Pulse 76 07/25/17 11:36 Resp BP 156/66 H 07/25/17 11:36 Pulse Ox 98 07/25/17 11:36 Weight: 57.153 kg - Exam General: Alert, Oriented, Cooperative HEENT: PERRLA, Hearing Intact, Mucosa Moist & [place], Nares Patent, Normal Nasal Septum, Posterior Pharynx Clear, Conjunctiva Clear, EOMI, EACs Clear, TMs Clear Neck: Supple, Trachea Midline, 2 Lungs: Clear to Auscultation, Normal Respiratory Effort Cardiovascular: Regular Rate, Systolic Murmur (aortic area 3/6 grade) GI/Abdominal Exam: Normal Bowel Sounds, Soft, Non-Tender, No Organomegaly, No Distention, No Abnormal Bruit, No Mass, Pelvis Stable Extremities: Normal Inspection, Normal Range of Motion, Non-Tender, No Pedal Edema, Normal Capillary Refill Peripheral Pulses: 2+: Radial (L), Radial (R) Skin: Warm, Dry, Intact Neurological: Cranial Nerves Intact, Reflexes Equal Bilateral Neuro Extensive - Mental Status: Alert, Oriented x3, Normal Mood/Affect, Normal Cognition, Memory Intact Neuro Extensive - Motor, Sensory, Reflexes: CN II-XII Intact, Normal Gait, Normal Reflexes Psychiatric: Alert, Normal Affect, Normal Mood *Q Meaningful Use (ADM) - VTE *Q VTE Criteria *Q: - Stroke *Q Stroke Criteria *Q: - AMI *Q AMI Criteria *Q: - Problem List (1) Acute intra-cranial hemorrhage SNOMED Code(s): 7376277 ICD Code: I62.9 - NONTRAUMATIC INTRACRANIAL HEMORRHAGE, UNSPECIFIED Status : Acute Current Visit: No Problem List Initiated/Reviewed/Updated: Yes Orders Last 24hrs: Active Orders 24 hr Category Date Time Status Admission Status [Patient Status] [ADT] Routine ADT 07/25/17 12:45 Active CULTURE MRSA SURVEY [RM] Routine Lab 07/25/17 Received Assessment/Plan Comment:: Assessment: Right fronto-parietal intracranial bleed Patient has been doing well. Plan is to start rehab. Pt has good rehab potential. Once she is at her baseline will plan of discharge. Will keep her off anti-platelet therapy for now, Continue discharge meds and Keppra. She does have followup appointment with Dr. Larry (neurosurgeon) on 08/07/17 at 2 Pm. will followup with her recommendations.
[2017-07-25] MEDS ORDERED: Tuberculin, PPD 5 Units/0.1 ML 1 ML MDV IDERM ONE (17:48)
[2017-07-25] MEDS ORDERED: Nitroglycerin 0.4 MG Tab.SL SL PRN (17:51)
[2017-07-25] MEDS: levETIRAcetam 500 MG Tab PO SCH (19:35)
[2017-07-25] MEDS: Losartan 50 MG Tab PO SCH (19:35)
[2017-07-26] MEDS: atorvaSTATin 40 MG Tab PO SCH ×2 (05:35→20:11)
[2017-07-26] MEDS: Omeprazole 20 MG Cap.CR PO SCH (06:49)
[2017-07-26] MEDS: Levothyroxine 100 MCG Tab PO SCH (06:50)
[2017-07-26] MEDS ORDERED: IBANDRONATE 150 MG PO SCH (08:00)
[2017-07-26] MEDS: Calcium Carbonate 600 MG Tab PO SCH (08:22)
[2017-07-26] MEDS: Amiodarone 200 MG Tab PO SCH (08:22)
[2017-07-26] MEDS: Losartan 50 MG Tab PO SCH ×2 (08:23→20:08)
[2017-07-26] MEDS: amLODIPine 5 MG Tab PO SCH (08:24)
[2017-07-26] MEDS: levETIRAcetam 500 MG Tab PO SCH ×2 (08:24→20:11)
[2017-07-26] MEDS: Multivitamins with Iron/Calcium/Folic Acid/Minerals Tab PO SCH (08:24)
[2017-07-26] MEDS: Hydrochlorothiazide 12.5 MG Cap PO SCH (08:24)
[2017-07-26] MEDS: MAGNESIUM 500 MG PO SCH (09:44)
[2017-07-27] MEDS: Levothyroxine 100 MCG Tab PO SCH (07:30)
[2017-07-27] MEDS: Omeprazole 20 MG Cap.CR PO SCH (07:30)
[2017-07-27] MEDS: MAGNESIUM 500 MG PO SCH (08:16)
[2017-07-27] MEDS: Hydrochlorothiazide 12.5 MG Cap PO SCH (08:17)
[2017-07-27] MEDS: Calcium Carbonate 600 MG Tab PO SCH (08:17)
[2017-07-27] MEDS: Docusate Sodium 100 MG Cap PO PRN ×2 (08:17→20:09)
[2017-07-27] MEDS: Losartan 50 MG Tab PO SCH ×2 (08:17→20:08)
[2017-07-27] MEDS: levETIRAcetam 500 MG Tab PO SCH ×2 (08:18→20:09)
[2017-07-27] MEDS: amLODIPine 5 MG Tab PO SCH (08:22)
[2017-07-27] MEDS: Amiodarone 200 MG Tab PO SCH (08:22)
[2017-07-27] MEDS: Multivitamins with Iron/Calcium/Folic Acid/Minerals Tab PO SCH (08:23)
[2017-07-27] MEDS: atorvaSTATin 40 MG Tab PO SCH (20:09)
[2017-07-28] MEDS: Omeprazole 20 MG Cap.CR PO SCH (06:44)
[2017-07-28] MEDS: Levothyroxine 100 MCG Tab PO SCH (06:44)
[2017-07-28] MEDS: levETIRAcetam 500 MG Tab PO SCH ×2 (08:24→19:41)
[2017-07-28] MEDS: Calcium Carbonate 600 MG Tab PO SCH (08:24)
[2017-07-28] MEDS: amLODIPine 5 MG Tab PO SCH (08:24)
[2017-07-28] MEDS: Amiodarone 200 MG Tab PO SCH (08:24)
[2017-07-28] MEDS: Hydrochlorothiazide 12.5 MG Cap PO SCH (08:24)
[2017-07-28] MEDS: Multivitamins with Iron/Calcium/Folic Acid/Minerals Tab PO SCH (08:24)
[2017-07-28] MEDS: MAGNESIUM 500 MG PO SCH (08:30)
[2017-07-28] MEDS: Losartan 50 MG Tab PO SCH ×2 (08:32→19:40)
[2017-07-28] MEDS: atorvaSTATin 40 MG Tab PO SCH (19:40)
[2017-07-29] MEDS: Levothyroxine 100 MCG Tab PO SCH (06:47)
[2017-07-29] MEDS: Omeprazole 20 MG Cap.CR PO SCH (06:47)
[2017-07-29] MEDS: amLODIPine 5 MG Tab PO SCH (08:34)
[2017-07-29] MEDS: levETIRAcetam 500 MG Tab PO SCH ×2 (08:34→19:38)
[2017-07-29] MEDS: Calcium Carbonate 600 MG Tab PO SCH (08:34)
[2017-07-29] MEDS: Hydrochlorothiazide 12.5 MG Cap PO SCH (08:35)
[2017-07-29] MEDS: Losartan 50 MG Tab PO SCH ×2 (08:35→19:38)
[2017-07-29] MEDS: Amiodarone 200 MG Tab PO SCH (08:35)
[2017-07-29] MEDS: Multivitamins with Iron/Calcium/Folic Acid/Minerals Tab PO SCH (08:35)
[2017-07-29] MEDS ORDERED: Bisacodyl 10 MG Supp RECTAL ONE (15:41)
[2017-07-29] MEDS: atorvaSTATin 40 MG Tab PO SCH (19:38)
[2017-07-30] MEDS: Omeprazole 20 MG Cap.CR PO SCH (06:45)
[2017-07-30] MEDS: Levothyroxine 100 MCG Tab PO SCH (06:45)
[2017-07-30] MEDS: Losartan 50 MG Tab PO SCH ×2 (08:45→19:51)
[2017-07-30] MEDS: Hydrochlorothiazide 12.5 MG Cap PO SCH (08:46)
[2017-07-30] MEDS: Calcium Carbonate 600 MG Tab PO SCH (08:46)
[2017-07-30] MEDS: levETIRAcetam 500 MG Tab PO SCH ×2 (08:47→19:51)
[2017-07-30] MEDS: Multivitamins with Iron/Calcium/Folic Acid/Minerals Tab PO SCH (08:47)
[2017-07-30] MEDS: amLODIPine 5 MG Tab PO SCH (08:53)
[2017-07-30] MEDS: Amiodarone 200 MG Tab PO SCH (08:53)
[2017-07-30] MEDS: MAGNESIUM 500 MG PO SCH ×2 (09:05→15:30)
[2017-07-30] MEDS ORDERED: Magnesium Hydroxide 400 MG/5 ML Susp 30 ML Cup ONE (18:42)
[2017-07-30] MEDS ORDERED: Magnesium Hydroxide 400 MG/5 ML Susp 30 ML Cup PO ONE (19:13)
[2017-07-30] MEDS: atorvaSTATin 40 MG Tab PO SCH (19:49)
[2017-07-31] MEDS: Omeprazole 20 MG Cap.CR PO SCH (06:14)
[2017-07-31] MEDS: Levothyroxine 100 MCG Tab PO SCH (06:14)
[2017-07-31] MEDS: MAGNESIUM 500 MG PO SCH (08:15)
[2017-07-31] MEDS: amLODIPine 5 MG Tab PO SCH (08:15)
[2017-07-31] MEDS: Multivitamins with Iron/Calcium/Folic Acid/Minerals Tab PO SCH (08:16)
[2017-07-31] MEDS: Losartan 50 MG Tab PO SCH ×2 (08:16→19:30)
[2017-07-31] MEDS: Hydrochlorothiazide 12.5 MG Cap PO SCH (08:17)
[2017-07-31] MEDS: levETIRAcetam 500 MG Tab PO SCH ×2 (08:17→19:29)
[2017-07-31] MEDS: Amiodarone 200 MG Tab PO SCH (08:18)
[2017-07-31] MEDS: Calcium Carbonate 600 MG Tab PO SCH (08:18)
[2017-07-31] MEDS: atorvaSTATin 40 MG Tab PO SCH (19:33)
[2017-08-01] MEDS: Omeprazole 20 MG Cap.CR PO SCH (07:15)
[2017-08-01] MEDS: Levothyroxine 100 MCG Tab PO SCH (07:15)
[2017-08-01] MEDS: levETIRAcetam 500 MG Tab PO SCH ×2 (08:56→20:36)
[2017-08-01] MEDS: Calcium Carbonate 600 MG Tab PO SCH (08:57)
[2017-08-01] MEDS: Amiodarone 200 MG Tab PO SCH (08:57)
[2017-08-01] MEDS: Hydrochlorothiazide 12.5 MG Cap PO SCH (08:58)
[2017-08-01] MEDS: Losartan 50 MG Tab PO SCH ×2 (08:58→20:36)
[2017-08-01] MEDS: Multivitamins with Iron/Calcium/Folic Acid/Minerals Tab PO SCH (08:59)
[2017-08-01] MEDS: amLODIPine 5 MG Tab PO SCH (08:59)
[2017-08-01] MEDS: MAGNESIUM 500 MG PO SCH (09:04)
[2017-08-01] MEDS: atorvaSTATin 40 MG Tab PO SCH (20:36)
[2017-08-02] MEDS: Levothyroxine 100 MCG Tab PO SCH (06:53)
[2017-08-02] MEDS: Omeprazole 20 MG Cap.CR PO SCH (06:53)
[2017-08-02] MEDS: levETIRAcetam 500 MG Tab PO SCH ×2 (08:38→19:50)
[2017-08-02] MEDS: MAGNESIUM 500 MG PO SCH (08:38)
[2017-08-02] MEDS: Calcium Carbonate 600 MG Tab PO SCH (08:47)
[2017-08-02] MEDS: amLODIPine 5 MG Tab PO SCH (08:47)
[2017-08-02] MEDS: Losartan 50 MG Tab PO SCH ×2 (08:47→19:47)
[2017-08-02] MEDS: Multivitamins with Iron/Calcium/Folic Acid/Minerals Tab PO SCH (08:47)
[2017-08-02] MEDS: Amiodarone 200 MG Tab PO SCH (08:48)
[2017-08-02] MEDS: Hydrochlorothiazide 12.5 MG Cap PO SCH (08:48)
[2017-08-02] MEDS: Ciprofloxacin 500 MG Tab PO SCH (19:47)
[2017-08-02] MEDS: atorvaSTATin 40 MG Tab PO SCH (19:50)
[2017-08-03] MEDS: Omeprazole 20 MG Cap.CR PO SCH (06:49)
[2017-08-03] MEDS: Levothyroxine 100 MCG Tab PO SCH (06:49)
[2017-08-03] MEDS: Ciprofloxacin 500 MG Tab PO SCH ×2 (07:26→20:15)
[2017-08-03] MEDS: Multivitamins with Iron/Calcium/Folic Acid/Minerals Tab PO SCH (07:26)
[2017-08-03] MEDS: levETIRAcetam 500 MG Tab PO SCH ×2 (07:26→20:15)
[2017-08-03] MEDS: Losartan 50 MG Tab PO SCH ×2 (07:26→20:14)
[2017-08-03] MEDS: Calcium Carbonate 600 MG Tab PO SCH (07:26)
[2017-08-03] MEDS: Hydrochlorothiazide 12.5 MG Cap PO SCH (07:26)
[2017-08-03] MEDS: MAGNESIUM 500 MG PO SCH (07:27)
[2017-08-03] MEDS: Amiodarone 200 MG Tab PO SCH (07:27)
[2017-08-03] MEDS: amLODIPine 5 MG Tab PO SCH (07:27)
--- NOTE | 2017-08-03 11:22 | PCM.PN ---
- General Info Date of Service: 08/03/17 Subjective Update: Pt is a 87 year female with recent right intracerebral bleed with focal seizure. She has been on Keppra. She has been doing well, has been imrpoving with ambulation and daily activities. Pt had frequent urination and had UA done yesterday. Has been feeding well. Pt is concerned about her left arm going weak on and off for few minutes and regains complete strength in it. has not happened in the past 24 hrs now. No other complaints. Functional Status: Reports: Pain Controlled, Tolerating Diet, Ambulating, Urinating - Review of Systems General: Denies: Fever, Fatigue, Chills HEENT: Denies: Headaches Pulmonary: Denies: Sputum, Hemoptysis Cardiovascular: Denies: Chest Pain, Lightheadedness Gastrointestinal: Denies: Abdominal Pain, Nausea, Vomiting Genitourinary: Reports: Dysuria, Frequency Musculoskeletal: Denies: Joint Pain, Joint Swelling Skin: Denies: Pruritis, Rash Neurological: Reports: Weakness. Denies: Confusion, Dizziness, Headache, Numbness, Paresthesia, Tingling - Patient Data Vitals - Most Recent: Last Vital Signs Temp 98 F 08/03/17 09:13 Pulse 71 08/03/17 09:13 Resp 18 08/03/17 09:13 BP 114/68 08/03/17 09:13 Pulse Ox 100 08/03/17 09:13 Weight - Most Recent: 55.849 kg Lab Results Last 24 Hours: Laboratory Results - last 24 hr 08/02/17 Range/Units 11:44 Urine Color Yellow Urine Appearance Slightly cloudy (CLEAR) Urine pH 7.0 (5.0-8.0) Ur Specific [place] 1.015 (1.003-1.030) Urine Protein Negative (NEGATIVE) mg/dL Urine Glucose (UA) Negative (NEGATIVE) mg/dL Urine Ketones Negative (NEGATIVE) mg/dL Urine Occult Blood Trace-lysed H (NEGATIVE) Urine Nitrite Negative (NEGATIVE) Urine Bilirubin Negative (NEGATIVE) Urine Urobilinogen 0.2 (0.2-1.0) E.U./dL Ur Leukocyte Esterase Moderate H (NEGATIVE) Urine RBC 5-10 H /HPF Urine WBC 40-50 H /HPF Urine WBC Clumps Moderate /HPF Ur Squamous Epith Cells Moderate /HPF Urine Bacteria Moderate H /HPF Med Orders - Current: Current Medications Amiodarone HCl (Cordarone) 200 mg PO DAILY [facility] Last Admin: 08/03/17 07:27 Dose: 200 mg Amlodipine Besylate (Norvasc) 5 mg PO DAILY [facility] Last Admin: 08/03/17 07:27 Dose: 5 mg Atorvastatin Calcium (Lipitor) 40 mg PO BEDTIME [facility] Last Admin: 08/02/17 19:50 Dose: 40 mg Calcium Carbonate/Glycine (Calcium Carbonate) 600 mg PO DAILY [facility] Last Admin: 08/03/17 07:26 Dose: 600 mg Ciprofloxacin (Ciprofloxacin Hcl) 500 mg PO BID [facility] Stop: 08/09/17 08:01 Last Admin: 08/03/17 07:26 Dose: 500 mg Docusate Sodium (Colace) 100 mg PO BEDTIME PRN PRN Reason: Constipation Last Admin: 07/27/17 20:09 Dose: 100 mg Hydrochlorothiazide (Hydrochlorothiazide) 12.5 mg PO DAILY [facility] Last Admin: 08/03/17 07:26 Dose: 12.5 mg Levetiracetam (Keppra) 500 mg PO BID [facility] Last Admin: 08/03/17 07:26 Dose: 500 mg Levothyroxine Sodium (Synthroid) 100 mcg PO ACBREAKFAST [facility] Last Admin: 08/03/17 06:49 Dose: 100 mcg Losartan Potassium (Cozaar) 50 mg PO BID [facility] Last Admin: 08/03/17 07:26 Dose: 50 mg Multivitamins/Minerals (Thera M Plus) 1 tab PO DAILY [facility] Last Admin: 08/03/17 07:26 Dose: 1 tab Nitroglycerin (Nitrostat) 0.4 mg SL TID PRN PRN Reason: chest pain Ibandronate [Boniva] (150mg) 150 mg PO .monthly [facility] Last Admin: 07/27/17 07:01 Dose: 150 mg Magnesium 500mg (Tablet) 500 each PO DAILY [facility] Last Admin: 08/03/17 07:27 Dose: 500 each Omeprazole (Omeprazole) 20 mg PO ACBREAKFAST [facility] Last Admin: 08/03/17 06:49 Dose: 20 mg Senna/Docusate Sodium (Senna Plus) 1 tab PO BID [facility] Last Admin: 08/03/17 07:27 Dose: 1 tab Tuberculin PPD (Aplisol) 5 unit IDERM ONETIME [facility] Discontinued Medications Bisacodyl (Dulcolax) 10 mg RECTAL ONETIME ONE Stop: 07/29/17 15:42 Last Admin: 07/29/17 15:48 Dose: 10 mg Magnesium Hydroxide (Milk Of Magnesia) Confirm Administered Dose 30 ml .ROUTE .STK-MED ONE Stop: 07/30/17 18:43 Last Admin: 07/30/17 19:55 Dose: Not Given Magnesium Hydroxide (Milk Of Magnesia) 30 ml PO ONETIME ONE Stop: 07/30/17 19:14 Last Admin: 07/30/17 20:00 Dose: Not Given Magnesium Oxide (Magnesium Oxide) 500 mg PO DAILY [facility] Last Admin: 07/27/17 13:53 Dose: Not Given Pneumococcal Polyvalent Vaccine (Pneumovax 23) 0.5 ml IM .ONCE ONE Stop: 08/02/17 07:40 Senna/Docusate Sodium (Senna Plus) 1 tab PO DAILY PRN PRN Reason: Constipation Last Admin: 07/31/17 08:17 Dose: 1 tab Simvastatin (Zocor) 80 mg PO BEDTIME [facility] Last Admin: 07/26/17 05:34 Dose: Not Given Tuberculin PPD (Aplisol) 5 unit IDERM ONETIME ONE Stop: 07/25/17 17:49 Last Admin: 07/27/17 07:31 Dose: 5 unit - Exam General: Alert, Oriented, Cooperative HEENT: Pupils Equal, Pupils Reactive, EOMI, Mucous Membr. Moist/[place] Neck: Supple Lungs: Clear to Auscultation, Normal Respiratory Effort Cardiovascular: Regular Rate, Regular Rhythm GI/Abdominal Exam: Normal Bowel Sounds, Soft, Non-Tender, No Organomegaly, No Distention, No Abnormal Bruit, No Mass, Pelvis Stable Extremities: Normal Inspection, Normal Range of Motion, Non-Tender, No Pedal Edema, Normal Capillary Refill Neurological: No New Focal Deficit, Normal Gait, Normal Speech, Normal Tone, Strength Equal Bilateral, Reflexes Equal Bilateral, Sensation Intact, Cranial Nerves Intact Psy/Mental Status: Alert, Normal Affect - Problem List & Annotations (1) Acute intra-cranial hemorrhage SNOMED Code(s): 8994181 Code(s): I62.9 - NONTRAUMATIC INTRACRANIAL HEMORRHAGE, UNSPECIFIED Status: Acute Current Visit: No - Problem List Review Problem List Initiated/Reviewed/Updated: Yes - My Orders Last 24 Hours: My Active Orders 08/02/17 20:00 Ciprofloxacin [Ciprofloxacin HCl] 500 mg PO BID 08/06/17 09:00 Head wo Cont [CT] Routine 08/10/17 08:00 Tuberculin, PPD [Aplisol] 5 unit IDERM ONETIME - Assessment Assessment:: Right intracranial bleed with focal seizures UTI - Plan Plan:: Assessment: Right fronto-parietal intracranial bleed Patient has been doing well. Plan is to start rehab. Pt has good rehab potential. Once she is at her baseline will plan of discharge. Will keep her off anti-platelet therapy for now, Continue discharge meds and Keppra. She does have followup appointment with Dr. Larry (neurosurgeon) on 08/07/17 at 2 Pm. will followup with her recommendations. 08/03/17: Pt has catheter induced UTI, presently she is not on urinary catheter, but she had it for 3 days when she was inpatient. I have started her on Cipro 500mg BID. Sent urine culture, will followup with results. Also her clinical exam and neuro exam is normal. The few episodes of weakness in the left limb might be the irritation to the motor cortex from the old bleed. Reassured that is why she is on kappra and should improve with time. Advised to continue OT and PT.
[2017-08-03] MEDS: atorvaSTATin 40 MG Tab PO SCH (20:15)
[2017-08-04] MEDS: Levothyroxine 100 MCG Tab PO SCH (06:55)
[2017-08-04] MEDS: Omeprazole 20 MG Cap.CR PO SCH (06:56)
[2017-08-04] MEDS: levETIRAcetam 500 MG Tab PO SCH ×2 (07:25→20:06)
[2017-08-04] MEDS: Multivitamins with Iron/Calcium/Folic Acid/Minerals Tab PO SCH (07:25)
[2017-08-04] MEDS: MAGNESIUM 500 MG PO SCH (07:25)
[2017-08-04] MEDS: Ciprofloxacin 500 MG Tab PO SCH ×2 (07:26→20:06)
[2017-08-04] MEDS: Losartan 50 MG Tab PO SCH ×2 (07:26→20:03)
[2017-08-04] MEDS: Hydrochlorothiazide 12.5 MG Cap PO SCH (07:26)
[2017-08-04] MEDS: Calcium Carbonate 600 MG Tab PO SCH (07:26)
[2017-08-04] MEDS: Amiodarone 200 MG Tab PO SCH (07:27)
[2017-08-04] MEDS: amLODIPine 5 MG Tab PO SCH (07:27)
[2017-08-04] MEDS: Pneumococcal Polyvalent-23 Vaccine 0.5 ML SDV IM ONE ×3 (17:26→18:43)
[2017-08-04] MEDS ORDERED: FLU Vacc QS 2017-18 (36mos UP)/PF 60 MCG/0.5 ML Syringe IM ONE (17:43)
[2017-08-04] MEDS: atorvaSTATin 40 MG Tab PO SCH (20:03)
[2017-08-05] MEDS: Levothyroxine 100 MCG Tab PO SCH (06:48)
[2017-08-05] MEDS: Omeprazole 20 MG Cap.CR PO SCH (06:48)
[2017-08-05] MEDS: Multivitamins with Iron/Calcium/Folic Acid/Minerals Tab PO SCH (07:31)
[2017-08-05] MEDS: levETIRAcetam 500 MG Tab PO SCH ×2 (07:31→19:48)
[2017-08-05] MEDS: Ciprofloxacin 500 MG Tab PO SCH ×2 (07:31→19:47)
[2017-08-05] MEDS: Calcium Carbonate 600 MG Tab PO SCH (07:31)
[2017-08-05] MEDS: amLODIPine 5 MG Tab PO SCH (07:31)
[2017-08-05] MEDS: Hydrochlorothiazide 12.5 MG Cap PO SCH (07:32)
[2017-08-05] MEDS: Losartan 50 MG Tab PO SCH ×2 (07:32→19:50)
[2017-08-05] MEDS: Amiodarone 200 MG Tab PO SCH (07:32)
[2017-08-05] MEDS: MAGNESIUM 500 MG PO SCH (07:38)
[2017-08-05] MEDS: atorvaSTATin 40 MG Tab PO SCH (19:47)
[2017-08-06] MEDS: Levothyroxine 100 MCG Tab PO SCH (06:56)
[2017-08-06] MEDS: Omeprazole 20 MG Cap.CR PO SCH (06:56)
[2017-08-06] MEDS: Amiodarone 200 MG Tab PO SCH (07:40)
[2017-08-06] MEDS: Ciprofloxacin 500 MG Tab PO SCH ×2 (07:40→19:45)
[2017-08-06] MEDS: Calcium Carbonate 600 MG Tab PO SCH (07:40)
[2017-08-06] MEDS: Losartan 50 MG Tab PO SCH ×2 (07:41→19:45)
[2017-08-06] MEDS: Hydrochlorothiazide 12.5 MG Cap PO SCH (07:42)
[2017-08-06] MEDS: MAGNESIUM 500 MG PO SCH (07:42)
[2017-08-06] MEDS: levETIRAcetam 500 MG Tab PO SCH ×2 (07:42→19:45)
[2017-08-06] MEDS: amLODIPine 5 MG Tab PO SCH (07:43)
[2017-08-06] MEDS: Multivitamins with Iron/Calcium/Folic Acid/Minerals Tab PO SCH (07:44)
--- NOTE | 2017-08-06 10:46 | CT ---
DATE OF SERVICE: 08/06/17 CLINICAL DATA: Eval interval change in IPH UNENHANCED BRAIN CT: Multislice acquisition through the brain without IV contrast was performed. Comparison is made to a prior exam dated 07/22/2017. The area of parenchymal hemorrhage within the right parietal region is again seen. It has not increased in volume from the prior exam and it is decreased in attenuation on today's study. There is edema at its periphery on today's study. There is minimal mass effect associated with this. No new areas of hemorrhage. The exam is otherwise unchanged from the prior. [id number] [facility]
--- NOTE | 2017-08-06 11:25 | PCM.SN ---
- Free Text/Narrative Note: Pt did have CT of the head done today. CT is reported as the bleed is unchanged. I have discussed the results with patient, and reassured her the bleed is stable and will slowly absorb over time. Also her left arm weakness and irritation has not happened in the past 3 days. Feels good, with stable vitals.
[2017-08-06] MEDS: atorvaSTATin 40 MG Tab PO SCH (19:45)
[2017-08-07] MEDS: Omeprazole 20 MG Cap.CR PO SCH (06:46)
[2017-08-07] MEDS: Levothyroxine 100 MCG Tab PO SCH (06:46)
[2017-08-07] MEDS: MAGNESIUM 500 MG PO SCH (07:37)
[2017-08-07] MEDS: amLODIPine 5 MG Tab PO SCH (07:38)
[2017-08-07] MEDS: Losartan 50 MG Tab PO SCH ×2 (07:38→20:30)
[2017-08-07] MEDS: Ciprofloxacin 500 MG Tab PO SCH ×2 (07:39→20:31)
[2017-08-07] MEDS: Hydrochlorothiazide 12.5 MG Cap PO SCH (07:39)
[2017-08-07] MEDS: Multivitamins with Iron/Calcium/Folic Acid/Minerals Tab PO SCH (07:39)
[2017-08-07] MEDS: Calcium Carbonate 600 MG Tab PO SCH (07:40)
[2017-08-07] MEDS: Amiodarone 200 MG Tab PO SCH (07:40)
[2017-08-07] MEDS: levETIRAcetam 500 MG Tab PO SCH ×2 (07:40→20:30)
[2017-08-07] MEDS: atorvaSTATin 40 MG Tab PO SCH (20:31)
[2017-08-07] MEDS: Aspirin 81 MG Tab.Chew PO SCH (20:37)
[2017-08-08] MEDS: Levothyroxine 100 MCG Tab PO SCH (07:04)
[2017-08-08] MEDS: Omeprazole 20 MG Cap.CR PO SCH (07:04)
[2017-08-08] MEDS: Losartan 50 MG Tab PO SCH ×2 (08:05→19:44)
[2017-08-08] MEDS: Ciprofloxacin 500 MG Tab PO SCH ×2 (08:05→19:43)
[2017-08-08] MEDS: levETIRAcetam 500 MG Tab PO SCH ×2 (08:05→19:43)
[2017-08-08] MEDS: Hydrochlorothiazide 12.5 MG Cap PO SCH (08:05)
[2017-08-08] MEDS: amLODIPine 5 MG Tab PO SCH (08:06)
[2017-08-08] MEDS: Calcium Carbonate 600 MG Tab PO SCH (08:06)
[2017-08-08] MEDS: Amiodarone 200 MG Tab PO SCH (08:06)
[2017-08-08] MEDS: MAGNESIUM 500 MG PO SCH (08:06)
[2017-08-08] MEDS: Multivitamins with Iron/Calcium/Folic Acid/Minerals Tab PO SCH (08:06)
--- NOTE | 2017-08-08 17:08 | PCM.SN ---
- Free Text/Narrative Note: Taking over care from Dr. London. Patient is doing well both cognitively and physically. We will continue with current management and therapy. No changes at this time. We will f/u Neurology and Neurosurgery management.
[2017-08-08] MEDS: Aspirin 81 MG Tab.Chew PO SCH (19:43)
[2017-08-08] MEDS: atorvaSTATin 40 MG Tab PO SCH (19:43)
[2017-08-09] MEDS ORDERED: Levothyroxine 50 MCG Tab ONE (06:45)
[2017-08-09] MEDS: Omeprazole 20 MG Cap.CR PO SCH (06:46)
[2017-08-09] MEDS: Levothyroxine 100 MCG Tab PO SCH (06:47)
[2017-08-09] MEDS: levETIRAcetam 500 MG Tab PO SCH ×2 (08:24→20:48)
[2017-08-09] MEDS: Amiodarone 200 MG Tab PO SCH (08:24)
[2017-08-09] MEDS: Multivitamins with Iron/Calcium/Folic Acid/Minerals Tab PO SCH (08:26)
[2017-08-09] MEDS: Ciprofloxacin 500 MG Tab PO SCH (08:26)
[2017-08-09] MEDS: amLODIPine 5 MG Tab PO SCH (08:27)
[2017-08-09] MEDS: Hydrochlorothiazide 12.5 MG Cap PO SCH (08:27)
[2017-08-09] MEDS: Losartan 50 MG Tab PO SCH ×2 (08:27→20:48)
[2017-08-09] MEDS: MAGNESIUM 500 MG PO SCH (08:30)
[2017-08-09] MEDS: Calcium Carbonate 600 MG Tab PO SCH (08:30)
[2017-08-09] MEDS: atorvaSTATin 40 MG Tab PO SCH (20:49)
[2017-08-09] MEDS: Aspirin 81 MG Tab.Chew PO SCH (20:49)
[2017-08-10] MEDS ORDERED: Levothyroxine 50 MCG Tab ONE (06:47)
[2017-08-10] MEDS: Omeprazole 20 MG Cap.CR PO SCH (06:53)
[2017-08-10] MEDS ORDERED: Tuberculin, PPD 5 Units/0.1 ML 1 ML MDV IDERM SCH (08:00)
[2017-08-10] MEDS: MAGNESIUM 500 MG PO SCH (09:06)
[2017-08-10] MEDS: Amiodarone 200 MG Tab PO SCH (09:07)
[2017-08-10] MEDS: levETIRAcetam 500 MG Tab PO SCH (09:07)
[2017-08-10] MEDS: Multivitamins with Iron/Calcium/Folic Acid/Minerals Tab PO SCH (09:07)
[2017-08-10] MEDS: Calcium Carbonate 600 MG Tab PO SCH (09:08)
[2017-08-10] MEDS: amLODIPine 5 MG Tab PO SCH (09:08)
[2017-08-10] MEDS: Hydrochlorothiazide 12.5 MG Cap PO SCH (09:08)
[2017-08-10] MEDS: Losartan 50 MG Tab PO SCH (09:09)
[2017-08-10 09:16] VITALS: BP 134/60
--- NOTE | 2017-08-10 09:47 | PCM.DCSUM1 ---
Discharge Summary - Discharge Data Discharge Date: 08/10/17 Discharge Disposition: Home, Self-Care 01 Condition: Good - Patient Summary/Data Consults: Consultations 07/25/17 17:48 OT Evaluation and Treatment [CONS] Routine Please Evaluate and Treat. OT Reason for Consult: ADL's This query below is only for informational purposes and is not editable. Admission Diagnosis/Problem: Cerebral hemorrhage PT Evaluation and Treatment [CONS] Routine Please Evaluate and Treat. PT Reason for Consult: Strengthening This query below is only for informational purposes and is not editable. Admission Diagnosis/Problem: Cerebral hemorrhage - Patient Instructions Diet: Heart Healthy Diet Activity: As Tolerated Driving: Do Not Drive - Discharge Plan Home Medications: Home Meds Levothyroxine [Synthroid] 100 mcg PO ACBREAKFAST 04/20/15 [History] Multivitamin [Multi-Vitamin Daily] 1 tab PO DAILY 04/20/15 [History] Omeprazole 20 mg PO ACBREAKFAST 04/20/15 [History] Docusate Sodium [Colace] 100 mg PO BEDTIME PRN 02/11/17 [History] Losartan [Cozaar] 50 mg PO BID 02/11/17 [History] Magnesium Oxide [Magnesium] 500 mg PO DAILY 02/11/17 [History] Amiodarone [Cordarone] 200 mg PO DAILY 07/22/17 [History] Hydrochlorothiazide 12.5 mg PO DAILY 07/22/17 [History] amLODIPine [Norvasc] 5 mg PO DAILY 07/22/17 [History] atorvaSTATin [Lipitor] 40 mg PO BEDTIME 07/22/17 [History] Calcium Carbonate [Calcium] 600 mg PO DAILY 07/25/17 [History] Ibandronate [Boniva] 150 mg PO ASDIRECTED 07/25/17 [History] Nitroglycerin 0.4 mg SL TID PRN 07/25/17 [History] levETIRAcetam [Keppra] 500 mg PO BID 07/25/17 [History] Cholecalciferol (Vitamin D3) [Vitamin D3] 2,000 unit PO DAILY 07/26/17 [History] Gluc 2KCl/Chondr/Era Hy/Hy Ac [Glucosamine & Chondroitin Cap] 1 each PO DAILY 07/26/17 [History] Polyethylene Glycol 3350 [Miralax] 17 gm PO DAILY PRN 07/26/17 [History] Aspirin 81 mg PO BEDTIME tab.chew 08/10/17 [Rx] Non-Formulary Medication [NF Drug] 500 each PO DAILY each 08/10/17 [Rx] Patient Handouts: Fall Prevention in the Home, [id number] - Discharge Summary/Plan Comment DC Time >30 min.: Yes Discharge Summary/Plan Comment: Counseled on discharge instructions. Patient will f/u with Dr. Joyec - Cardiology and Dr. Hernández - Neurology. Discussed plan of care, medications on discharge. All questions answered and discussed. Repeat CT head on 08/20/17. F/u in clinic as directed and as needed. Patient to start Cardiac rehab. We have discontinued Plavix and Xarelto. Dr. Joyce to determine initiation of a different anticoagulant as warranted - Per Neurosurgery that is decided by Cardiology but not to return to Plavix or Xarelto use. - Patient Data Vitals - Most Recent: Last Vital Signs Temp 36.9 C 08/09/17 10:00 Pulse 86 08/09/17 10:00 Resp 16 08/09/17 10:00 BP 134/60 08/10/17 09:09 Pulse Ox 94 L 08/09/17 10:00 Weight - Most Recent: 57.153 kg Med Orders - Current: Current Medications Amiodarone HCl (Cordarone) 200 mg PO DAILY [facility] Last Admin: 08/10/17 09:07 Dose: 200 mg Amlodipine Besylate (Norvasc) 5 mg PO DAILY [facility] Last Admin: 08/10/17 09:08 Dose: 5 mg Aspirin (Aspirin) 81 mg PO BEDTIME [facility] Last Admin: 08/09/17 20:49 Dose: 81 mg Atorvastatin Calcium (Lipitor) 40 mg PO BEDTIME [facility] Last Admin: 08/09/17 20:49 Dose: 40 mg Calcium Carbonate/Glycine (Calcium Carbonate) 600 mg PO DAILY [facility] Last Admin: 08/10/17 09:08 Dose: 600 mg Docusate Sodium (Colace) 100 mg PO BEDTIME PRN PRN Reason: Constipation Last Admin: 07/27/17 20:09 Dose: 100 mg Hydrochlorothiazide (Hydrochlorothiazide) 12.5 mg PO DAILY [facility] Last Admin: 08/10/17 09:08 Dose: 12.5 mg Levetiracetam (Keppra) 500 mg PO BID [facility] Last Admin: 08/10/17 09:07 Dose: 500 mg Levothyroxine Sodium (Synthroid) 100 mcg PO ACBREAKFAST [facility] Last Admin: 08/09/17 06:47 Dose: 100 mcg Losartan Potassium (Cozaar) 50 mg PO BID [facility] Last Admin: 08/10/17 09:09 Dose: 50 mg Multivitamins/Minerals (Thera M Plus) 1 tab PO DAILY [facility] Last Admin: 08/10/17 09:07 Dose: 1 tab Nitroglycerin (Nitrostat) 0.4 mg SL TID PRN PRN Reason: chest pain Ibandronate [Boniva] (150mg) 150 mg PO .monthly [facility] Last Admin: 07/27/17 07:01 Dose: 150 mg Magnesium 500mg (Tablet) 500 each PO DAILY [facility] Last Admin: 08/10/17 09:06 Dose: 500 each Omeprazole (Omeprazole) 20 mg PO ACBREAKFAST [facility] Last Admin: 08/10/17 06:53 Dose: 20 mg Senna/Docusate Sodium (Senna Plus) 1 tab PO BID [facility] Last Admin: 08/10/17 09:07 Dose: 1 tab Tuberculin PPD (Aplisol) 5 unit IDERM ONETIME [facility] Discontinued Medications Bisacodyl (Dulcolax) 10 mg RECTAL ONETIME ONE Stop: 07/29/17 15:42 Last Admin: 07/29/17 15:48 Dose: 10 mg Ciprofloxacin (Ciprofloxacin Hcl) 500 mg PO BID [facility] Stop: 08/09/17 08:01 Last Admin: 08/09/17 08:26 Dose: 500 mg Levothyroxine Sodium (Synthroid) Confirm Administered Dose 100 mcg .ROUTE .STK- MED ONE Stop: 08/09/17 06:46 Last Admin: 08/09/17 07:02 Dose: Not Given Levothyroxine Sodium (Synthroid) Confirm Administered Dose 100 mcg .ROUTE .STK- MED ONE Stop: 08/10/17 06:48 Last Admin: 08/10/17 06:53 Dose: 100 mcg Magnesium Hydroxide (Milk Of Magnesia) Confirm Administered Dose 30 ml .ROUTE .STK-MED ONE Stop: 07/30/17 18:43 Last Admin: 07/30/17 19:55 Dose: Not Given Magnesium Hydroxide (Milk Of Magnesia) 30 ml PO ONETIME ONE Stop: 07/30/17 19:14 Last Admin: 07/30/17 20:00 Dose: Not Given Magnesium Oxide (Magnesium Oxide) 500 mg PO DAILY [facility] Last Admin: 07/27/17 13:53 Dose: Not Given Pneumococcal Polyvalent Vaccine (Pneumovax 23) 0.5 ml IM .ONCE ONE Stop: 08/02/17 07:40 Last Admin: 08/04/17 18:43 Dose: Not Given Senna/Docusate Sodium (Senna Plus) 1 tab PO DAILY PRN PRN Reason: Constipation Last Admin: 07/31/17 08:17 Dose: 1 tab Simvastatin (Zocor) 80 mg PO BEDTIME [facility] Last Admin: 07/26/17 05:34 Dose: Not Given Tuberculin PPD (Aplisol) 5 unit IDERM ONETIME ONE Stop: 07/25/17 17:49 Last Admin: 07/27/17 07:31 Dose: 5 unit *Q Meaningful Use (DIS) - VTE *Q VTE Criteria *Q: - Stroke *Q Stroke Criteria *Q: - AMI *Q AMI Criteria *Q:
[2017-08-10] MEDS ORDERED: Hydrocortisone Acetate 1% Crm 30 GM Tube TOP PRN (13:34)
== END 2017-08-10 14:00 | disposition home or self-care (01) | DRG 948 ==
LOC: LB.MS 08:38 → UNDOADMIN 08:38 → LB.MS 12:45
PROVIDERS: ADMIT Family Medicine; ATTEND Family Medicine
DX: R53.1 Weakness (principal); I62.9 Nontraumatic intracranial hemorrhage, unspecified; T83.511A Infection and inflammatory reaction due to indwelling urethral catheter, initial encounter; I69.398 Other sequelae of cerebral infarction; R56.9 Unspecified convulsions; Z23 Encounter for immunization; I10 Essential (primary) hypertension; I48.91 Unspecified atrial fibrillation; E78.00 Pure hypercholesterolemia, unspecified; M81.0 Age-related osteoporosis without current pathological fracture; M19.90 Unspecified osteoarthritis, unspecified site; E06.3 Autoimmune thyroiditis; Z95.1 Presence of aortocoronary bypass graft; I25.2 Old myocardial infarction; H54.7 Unspecified visual loss; Z85.840 Personal history of malignant neoplasm of eye; Z79.82 Long term (current) use of aspirin; Z79.01 Long term (current) use of anticoagulants
CPT/HCPCS: 70450; 81001; 86580; 87086; 87088; 87186; 90686; 90732; 97110-GO; 97110-GP; 97116-GP; 97161-GP; 97165-GO; 97530-GO; 97530-GP; 97535-GO; A9270-GY; G0008

== ENCOUNTER 2017-12-15 18:12 | Observation (INO) | payer MEDICARE, BC ==
[~2017-12-15 18:12] MED LIST: Ciprofloxacin in D5W 400 MG in Premix Bag 1 BAG IV SCH
[2017-12-15] MEDS ORDERED: Sodium Chloride 0.9% 10 ML Syringe FLUSH PRN (18:32)
[2017-12-15] MEDS ORDERED: Sodium Chloride 0.9% 1,000 ML IV SCH (18:45)
[2017-12-15] MEDS ORDERED: Potassium Chloride 20 MEQ Tab.ER ONE (19:26)
[2017-12-15] MEDS ORDERED: Potassium Chloride 20 MEQ Tab.ER PO ONE (19:29)
--- NOTE | 2017-12-15 20:23 | EDM.PDOC ---
ED HPI GENERAL MEDICAL PROBLEM - General Chief Complaint: General Stated Complaint: NAUSEA,VOMITING,DIARRHEA Time Seen by Provider: 12/15/17 18:30 Source of Information: Reports: Patient History Limitations: Reports: No Limitations - History of Present Illness INITIAL COMMENTS - FREE TEXT/NARRATIVE: Patient is an 87 year old woman who 2 days ago started having some nausea, vomiting and diarrhea. Yesterday, her abdomen was a little sore but today she has no pain but she is very weak and she was having a hard time getting up in her apartment, so she called the ambulance to come pick her up so she could be evaluated here in the ED. No fever or chills but she feels sick, tired and weak. Onset: Gradual Onset Date: 12/13/17 Onset Time: 08:00 Duration: Day(s): (2) Location: Reports: Abdomen, Generalized Quality: Reports: Other (Recent illnesses have her feeling ill.) Severity: Moderate Improves with: Reports: None Worsens with: Reports: Other Context: Reports: Other (Ill with Gastroenteritis for 2 days and now is weak.) Associated Symptoms: Reports: Nausea/Vomiting, Weakness - Related Data Allergies Allergy/AdvReac Type Severity Reaction Status Date / Time clopidogrel [From Plavix] Allergy Bleeding Verified 08/10/17 15:05 rivaroxaban [From Xarelto] Allergy Bleeding Verified 08/10/17 15:05 Home Meds: Home Meds Levothyroxine [Synthroid] 100 mcg PO ACBREAKFAST 04/20/15 [History] Multivitamin [Multi-Vitamin Daily] 1 tab PO DAILY 04/20/15 [History] Omeprazole 20 mg PO ACBREAKFAST 04/20/15 [History] Docusate Sodium [Colace] 100 mg PO BEDTIME PRN 02/11/17 [History] Losartan [Cozaar] 50 mg PO BID 02/11/17 [History] Magnesium Oxide [Magnesium] 500 mg PO DAILY 02/11/17 [History] Amiodarone [Cordarone] 200 mg PO DAILY 07/22/17 [History] Hydrochlorothiazide 12.5 mg PO DAILY 07/22/17 [History] amLODIPine [Norvasc] 5 mg PO DAILY 07/22/17 [History] atorvaSTATin [Lipitor] 40 mg PO BEDTIME 07/22/17 [History] Calcium Carbonate [Calcium] 600 mg PO DAILY 07/25/17 [History] Ibandronate [Boniva] 150 mg PO ASDIRECTED 07/25/17 [History] Nitroglycerin 0.4 mg SL TID PRN 07/25/17 [History] levETIRAcetam [Keppra] 500 mg PO BID 07/25/17 [History] Cholecalciferol (Vitamin D3) [Vitamin D3] 2,000 unit PO DAILY 07/26/17 [History] Gluc 2KCl/Chondr/Era Hy/Hy Ac [Glucosamine & Chondroitin Cap] 1 each PO DAILY 07/26/17 [History] Polyethylene Glycol 3350 [Miralax] 17 gm PO DAILY PRN 07/26/17 [History] Aspirin 81 mg PO BEDTIME tab.chew 08/10/17 [Rx] Non-Formulary Medication [NF Drug] 500 each PO DAILY each 08/10/17 [Rx] Past Medical History HEENT History: Reports: Impaired Vision Other HEENT History: 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 Can't pass vision test for driving- has to wear glasses for driving but no problem reading signs etc. Cardiovascular History: Reports: Afib, Bypass, High Cholesterol, Hypertension, [place] Other Cardiovascular History: Has history of aortic stenosis, history of triple bypass surgery. Implant EKG. Constricted aorta. Respiratory History: Reports: None Gastrointestinal History: Reports: Diverticulosis, Hiatal Hernia Other Gastrointestinal History: History of mass at the top of her stomach, had a gastro or colon (patient not sure which), also had barium x-ray. Neither showed anything and was found to be benign. Also has diverticuli in colon. 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 Thalassanemia/thalassemia Immunologic History: Reports: None Oncologic (Cancer) History: Reports: Other (See Below) Other Oncologic History: Basal cell in L eye Dermatologic History: Reports: Other (See Below) Other Dermatologic History: Basal cell was in left eye. - Infectious Disease History Infectious Disease History: Reports: Chicken Pox, Measles, Mumps - Past Surgical History GI Surgical History: Reports: Colonoscopy Female Surgical History: Reports: None Neurological Surgical History: Reports: None Social & Family History - Family History Family Medical History: Noncontributory - Tobacco Use Smoking Status *Q: Never Smoker Second Hand Smoke Exposure: No - Caffeine Use Caffeine Use: Reports: Coffee Other Caffeine Use: decafinated 1-2 cups for breakfast - Alcohol Use Days Per Week of Alcohol Use: 1 Number of Drinks Per Day: 0 Total Drinks Per Week: 0 - Recreational Drug Use Recreational Drug Use: No ED ROS GENERAL - Review of Systems Review Of Systems: See Below Constitutional: Reports: Malaise, Weakness, Fatigue, Decreased Appetite HEENT: Reports: No Symptoms Respiratory: Reports: No Symptoms Cardiovascular: Reports: No Symptoms Endocrine: Reports: No Symptoms GI/Abdominal: Reports: Abdominal Pain, Diarrhea, Decreased Appetite, Nausea, Vomiting : Reports: No Symptoms Musculoskeletal: Reports: No Symptoms Skin: Reports: No Symptoms Neurological: Reports: No Symptoms Psychiatric: Reports: No Symptoms Hematologic/Lymphatic: Reports: No Symptoms Immunologic: Reports: No Symptoms ED EXAM, GENERAL - Physical Exam Exam: See Below Exam Limited By: No Limitations General Appearance: Alert, WD/WN, No Apparent Distress Eye Exam: Bilateral Eye: EOMI, Normal Fundi, Normal Inspection, PERRL Ears: Normal External Exam, Normal Canal, Hearing Grossly Normal, Normal TMs Ear Exam: Bilateral Ear: Auricle Normal, Canal Normal, TM normal Nose: Normal Inspection, Normal Mucosa, No Blood Throat/Mouth: Normal Inspection, Normal Lips, Normal Teeth, Normal Gums, Normal Oropharynx, Normal Voice, No Airway Compromise Head: Atraumatic, Normocephalic Neck: Normal Inspection, Supple, Non-Tender, Full Range of Motion Respiratory/Chest: No Respiratory Distress, Lungs Clear, Normal Breath Sounds, No Accessory Muscle Use, Chest Non-Tender Cardiovascular: Normal Peripheral Pulses, Regular Rate, Rhythm, No Edema, No Gallop, No JVD, No Murmur, No Rub GI/Abdominal: Normal Bowel Sounds, Soft, Non-Tender, No Organomegaly, No Distention, No Abnormal Bruit, No Mass Back Exam: Normal Inspection, Full Range of Motion, NT Extremities: Normal Inspection, Normal Range of Motion, Non-Tender, Normal Capillary Refill, No Pedal Edema Neurological: Alert, Oriented, CN II-XII Intact, Normal Cognition, Normal Gait, Normal Reflexes, No Motor/Sensory Deficits Psychiatric: Normal Affect, Normal Mood Skin Exam: Warm, Dry, Intact, Normal Color, No Rash Lymphatic: No Adenopathy EKG INTERPRETATION EKG Date: 12/15/17 Rhythm: NSR [place]: Normal P-Wave: Present QRS: Normal ST-T: Normal QT: Normal Comparison: No Change Course - Vital Signs Text/Narrative:: Patient had an uneventful ED course. She will be admitted to Observation for a UTI, resolving gastroenteritis and hypokalemia. She will be on IV 0.9 NS with 20 meq of KCL at 125 ml/hour. We will put her on IV Cipro 400 mg bid, IV Zofran 4 mg prn nausea and will continue her home medications. Last Recorded V/S: Last Vital Signs Temp 36.8 C 12/15/17 18:26 Pulse 72 12/15/17 18:26 Resp 20 12/15/17 18:26 BP 130/50 L 12/15/17 18:26 Pulse Ox 96 12/15/17 18:26 - Orders/Labs/Meds Orders: Active Orders 24 hr Category Date Time Status EKG Documentation Completion [RC] ASDIRECTED Care 12/15/17 18:30 Active CXR [Chest 1V Frontal] [CR] Stat Exams 12/15/17 18:31 Taken Sodium Chloride 0.9% [Normal Saline] 1,000 ml Med 12/15/17 18:45 Active IV ASDIRECTED Sodium Chloride 0.9% [Saline Flush] Med 12/15/17 18:32 Active 10 ml FLUSH ASDIRECTED PRN Saline Lock Insert [OM.PC] Routine Oth 12/15/17 18:32 Ordered Medication Orders Sodium Chloride (Normal Saline) 1,000 mls @ 1,000 mls/hr IV ASDIRECTED [facility] Last Admin: 12/15/17 19:00 Dose: 1,000 mls/hr Sodium Chloride (Saline Flush) 10 ml FLUSH ASDIRECTED PRN PRN Reason: Keep Vein Open Labs: Laboratory Tests 01/20/18 01/20/18 01/20/18 Range/Units 19:00 19:00 19:38 WBC 11.5 H (4.0-11.0) K/uL RBC 4.82 (3.80-5.80) M/uL Hgb 10.3 L (11.5-16.5) g/dL Hct 30.1 L (37.0-47.0) % MCV 62 L (76-96) fL MCH 21.4 L (27.0-32.0) pg MCHC 34.2 (31.0-35.0) g/dL RDW 16.2 H (11.0-16.0) % Plt Count 207 D (150-500) K/uL MPV 9.2 (6.0-10.0) fL Neut % (Auto) 80.6 H (45.0-70.0) % Lymph % (Auto) 10.2 L (20.0-40.0) % [place] % (Auto) 8.7 (3.0-10.0) % Eos % (Auto) 0.3 L (1.0-5.0) % Baso % (Auto) 0.2 (0.0-0.5) % Neut # (Auto) 9.26 H (2.00-7.50) K/uL Lymph # (Auto) 1.17 L (1.50-4.00) K/uL [place] # (Auto) 1.00 H (0.20-0.80) K/uL Eos # (Auto) 0.03 L (0.04-0.40) K/uL Baso # (Auto) 0.02 (0.02-0.10) K/uL Sodium 129 L (136-145) mmol/L Potassium 2.7 L* D (3.5-5.1) mmol/L Chloride 92 L (98-107) mmol/L Carbon Dioxide 27.3 (21.0-32.0) mmol/L Anion Gap 12.4 (5.0-15.0) mmol/L BUN 12 (8-26) mg/dL Creatinine 0.89 D (0.55-1.02) mg/dL Est Cr Clr Drug Dosing 2.59 mL/min Estimated GFR (MDRD) 60 (>60) MLS/MIN BUN/Creatinine Ratio 13.5 (6-25) Glucose 133 H (74-100) mg/dL Calcium 8.4 L (8.5-10.1) mg/dL Total Bilirubin 2.2 H (0.0-1.0) mg/dL AST 30 (15-37) U/L ALT 27 (12-78) U/L Alkaline Phosphatase 54 (46-116) U/L Troponin I < 0.017 D (0.000-0.060) ng/mL Total Protein 6.6 (6.4-8.2) g/dL Albumin 3.4 (3.4-5.0) g/dL Globulin 3.2 (2.2-4.2) g/dL Albumin/Globulin Ratio 1.1 (0.8-2.0) Urine Color Yellow Urine Appearance Slightly cloudy (CLEAR) Urine pH 7.0 (5.0-8.0) Ur Specific [place] 1.015 (1.003-1.030) Urine Protein Trace H (NEGATIVE) mg/dL Urine Glucose (UA) Negative (NEGATIVE) mg/dL Urine Ketones Negative (NEGATIVE) mg/dL Urine Occult Blood Trace-intact H (NEGATIVE) Urine Nitrite Negative (NEGATIVE) Urine Bilirubin Negative (NEGATIVE) Urine Urobilinogen 0.2 (0.2-1.0) E.U./dL Ur Leukocyte Esterase Small H (NEGATIVE) Urine RBC 0-5 H /HPF Urine WBC 5-10 H /HPF Ur Squamous Epith Cells Few /HPF Urine Bacteria Many H /HPF Meds: Medications Generic Name Dose Route Start Last Admin Trade Name Freq PRN Reason Stop Dose Admin Sodium Chloride 1,000 mls @ 1,000 mls/hr 12/15/17 18:45 12/15/17 19:00 Normal Saline IV 1,000 mls/hr ASDIRECTED PAMELA Administration Sodium Chloride 10 ml 12/15/17 18:32 Saline Flush FLUSH ASDIRECTED PRN Keep Vein Open Discontinued Medications Generic Name Dose Route Start Last Admin Trade Name Freq PRN Reason Stop Dose Admin Potassium Chloride Confirm 12/15/17 19:26 12/15/17 19:29 Klor-Con M20 Administered 12/15/17 19:27 Not Given Dose 40 meq .ROUTE .STK-MED ONE Potassium Chloride 40 meq 12/15/17 19:29 12/15/17 19:29 Klor-Con M20 PO 12/15/17 19:30 40 meq ONETIME ONE Administration Departure - Departure Time of Disposition: 20:29 Disposition: Refer to Observation Condition: Good Clinical Impression: UTI (urinary tract infection), Gastroenteritis, Hypokalemia - Discharge Information Referrals: PCP,None [Primary Care Provider] - - My Orders Last 24 Hours: My Active Orders 12/15/17 18:30 EKG Documentation Completion [RC] ASDIRECTED 12/15/17 18:31 CXR [Chest 1V Frontal] [CR] Stat 12/15/17 18:32 Sodium Chloride 0.9% [Saline Flush] 10 ml FLUSH ASDIRECTED PRN Saline Lock Insert [OM.PC] Routine 12/15/17 18:45 Sodium Chloride 0.9% [Normal Saline] 1,000 ml IV ASDIRECTED - Assessment/Plan Last 24 Hours: My Active Orders 12/15/17 18:30 EKG Documentation Completion [RC] ASDIRECTED 12/15/17 18:31 CXR [Chest 1V Frontal] [CR] Stat 12/15/17 18:32 Sodium Chloride 0.9% [Saline Flush] 10 ml FLUSH ASDIRECTED PRN Saline Lock Insert [OM.PC] Routine 12/15/17 18:45 Sodium Chloride 0.9% [Normal Saline] 1,000 ml IV ASDIRECTED
[2017-12-15] MEDS ORDERED: Ondansetron 4 MG/2 ML SDV IVPUSH PRN (21:06)
[2017-12-15] MEDS: NS + KCl 20mEq/L 1,000 ML IV SCH (21:15)
[2017-12-15] MEDS ORDERED: Ciprofloxacin in D5W 200 ML ONE (21:37)
[2017-12-15] MEDS: Ciprofloxacin in D5W 400 MG in Premix Bag 1 BAG IV SCH ×2 (21:40)
[2017-12-16] MEDS ORDERED: Nitroglycerin 0.4 MG Tab.SL SL PRN (06:13)
[2017-12-16] MEDS ORDERED: Polyethylene Glycol 3350 Powder 17 GM Packet PO PRN (06:13)
[2017-12-16] MEDS: Omeprazole 20 MG Cap.CR***OWN MED PO SCH (07:46)
[2017-12-16] MEDS: LEVOTHYROXINE 100 MCG PO SCH (07:47)
[2017-12-16] MEDS: NS + KCl 20mEq/L 1,000 ML IV SCH (07:49)
[2017-12-16] MEDS: Ciprofloxacin in D5W 400 MG in Premix Bag 1 BAG IV SCH ×4 (07:59→20:20)
[2017-12-16] MEDS: LEVETIRACETAM 500 MG PO SCH ×2 (08:00→17:11)
[2017-12-16] MEDS: LOSARTAN 50 MG PO SCH ×2 (08:00→17:11)
[2017-12-16] MEDS: HYDROCHLOROTHIAZIDE 12.5 MG PO SCH (08:00)
[2017-12-16] MEDS: AMIODARONE 200 MG PO SCH (08:01)
[2017-12-16] MEDS: ORTHO BIOTIC PO SCH ×2 (08:04→12:00)
[2017-12-16] MEDS: MULTIVITAMIN PO SCH (12:00)
--- NOTE | 2017-12-16 13:17 | PCM.PN ---
- General Info Date of Service: 12/16/17 Functional Status: Reports: Pain Controlled, Tolerating Diet - Review of Systems General: Reports: No Symptoms HEENT: Reports: No Symptoms Pulmonary: Reports: No Symptoms Cardiovascular: Reports: No Symptoms Gastrointestinal: Reports: No Symptoms Genitourinary: Reports: No Symptoms Musculoskeletal: Reports: No Symptoms Skin: Reports: No Symptoms Neurological: Reports: No Symptoms Psychiatric: Reports: No Symptoms - Patient Data Vitals - Most Recent: Last Vital Signs Temp 36.6 C 12/16/17 08:00 Pulse 65 12/16/17 08:00 Resp 20 12/16/17 08:00 BP 120/51 L 12/16/17 08:04 Pulse Ox 98 12/16/17 08:00 Weight - Most Recent: 59.421 kg I&O - Last 24 Hours: Intake & Output 12/15/17 12/16/17 12/16/17 22:59 06:59 14:59 Intake Total 1994 Output Total 2500 Balance -506 Lab Results Last 24 Hours: Laboratory Results - last 24 hr 12/16/17 12/16/17 Range/Units 10:00 10:00 WBC 8.2 D (4.0-11.0) K/uL RBC 4.41 (3.80-5.80) M/uL Hgb 9.5 L (11.5-16.5) g/dL Hct 28.1 L (37.0-47.0) % MCV 64 L (76-96) fL MCH 21.5 L (27.0-32.0) pg MCHC 33.8 (31.0-35.0) g/dL RDW 16.0 (11.0-16.0) % Plt Count 191 (150-500) K/uL MPV 9.4 (6.0-10.0) fL Neut % (Auto) 69.1 (45.0-70.0) % Lymph % (Auto) 19.2 L (20.0-40.0) % [place] % (Auto) 10.1 H (3.0-10.0) % Eos % (Auto) 1.0 (1.0-5.0) % Baso % (Auto) 0.6 H (0.0-0.5) % Neut # (Auto) 5.70 (2.00-7.50) K/uL Lymph # (Auto) 1.58 (1.50-4.00) K/uL [place] # (Auto) 0.83 H (0.20-0.80) K/uL Eos # (Auto) 0.08 (0.04-0.40) K/uL Baso # (Auto) 0.05 (0.02-0.10) K/uL Sodium 133 L (136-145) mmol/L Potassium 3.7 D (3.5-5.1) mmol/L Chloride 101 (98-107) mmol/L Carbon Dioxide 27.6 (21.0-32.0) mmol/L Anion Gap 8.1 (5.0-15.0) mmol/L BUN 8 D (8-26) mg/dL Creatinine 0.76 (0.55-1.02) mg/dL Est Cr Clr Drug Dosing 37.46 mL/min Estimated GFR (MDRD) > 60 (>60) MLS/MIN BUN/Creatinine Ratio 10.5 (6-25) Glucose 121 H (74-100) mg/dL Calcium 7.5 L (8.5-10.1) mg/dL Total Bilirubin 1.6 H (0.0-1.0) mg/dL AST 25 (15-37) U/L ALT 22 (12-78) U/L Alkaline Phosphatase 45 L (46-116) U/L Total Protein 5.7 L (6.4-8.2) g/dL Albumin 2.8 L (3.4-5.0) g/dL Globulin 2.9 (2.2-4.2) g/dL Albumin/Globulin Ratio 1.0 (0.8-2.0) Med Orders - Current: Current Medications Amiodarone HCl (Cordarone) 200 mg PO DAILY [facility] Last Admin: 12/16/17 08:01 Dose: 200 mg Amlodipine Besylate (Norvasc) 5 mg PO DAILY [facility] Last Admin: 12/16/17 08:04 Dose: 5 mg Aspirin (Aspirin) 81 mg PO BEDTIME [facility] Atorvastatin Calcium (Lipitor) 40 mg PO BEDTIME [facility] Hydrochlorothiazide (Hydrochlorothiazide) 12.5 mg PO DAILY [facility] Last Admin: 12/16/17 08:00 Dose: 12.5 mg Potassium Chloride/Sodium Chloride (Normal Saline With 20 Meq Kcl) 1,000 mls @ 125 mls/hr IV ASDIRECTED [facility] Last Admin: 12/16/17 07:49 Dose: 125 mls/hr Ciprofloxacin/Dextrose 400 mg/ (Premix) 200 mls @ 200 mls/hr IV Q12HR [facility] Last Admin: 12/16/17 07:59 Dose: 100 mls/hr Levetiracetam (Keppra) 500 mg PO BID@0800,1700 [facility] Last Admin: 12/16/17 08:00 Dose: 500 mg Levothyroxine Sodium (Synthroid) 100 mcg PO ACBREAKFAST [facility] Last Admin: 12/16/17 07:47 Dose: 100 mcg Losartan Potassium (Cozaar) 50 mg PO BID@0800,1700 [facility] Last Admin: 12/16/17 08:00 Dose: 50 mg Melatonin (Melatonin) 3 mg PO DAILY@1700 [facility] Nitroglycerin (Nitrostat) 0.4 mg SL TID PRN PRN Reason: chest pain (Magnesium Oxide [ Magnesium] 500 Mg) *Own Med 500 mg PO DAILY [facility] (Multivitamin [Multi -Vitamin Daily] 1 Tab)Own Med 1 tab PO DAILY@1200 [facility] Last Admin: 12/16/17 12:00 Dose: 1 tab Ortho-Biotic Own (Med) 1 each PO BID@0800,1200 [facility] Last Admin: 12/16/17 12:00 Dose: 1 each Omeprazole (Omeprazole) 20 mg PO ACBREAKFAST [facility] Last Admin: 12/16/17 07:46 Dose: 20 mg Ondansetron HCl (Zofran) 4 mg IVPUSH Q4H PRN PRN Reason: Nausea/Vomiting Polyethylene Glycol (Miralax) 17 gm PO DAILY PRN PRN Reason: Constipation Senna/Docusate Sodium (Senna Plus) 2 tab PO DAILY@1700 [facility] Sodium Chloride (Saline Flush) 10 ml FLUSH ASDIRECTED PRN PRN Reason: Keep Vein Open Discontinued Medications Sodium Chloride (Normal Saline) 1,000 mls @ 1,000 mls/hr IV ASDIRECTED [facility] Last Admin: 12/15/17 19:00 Dose: 1,000 mls/hr Ciprofloxacin/Dextrose 400 mg/ (Premix) 200 mls @ 200 mls/hr IV Q12HR [facility] Ciprofloxacin/Dextrose (Cipro In D5w 400 Mg/200 Ml) Confirm Administered Dose 200 mls @ as directed .ROUTE .STK-MED ONE Stop: 12/15/17 21:38 Last Admin: 12/16/17 01:42 Dose: Not Given Potassium Chloride (Klor-Con M20) Confirm Administered Dose 40 meq .ROUTE .STK- MED ONE Stop: 12/15/17 19:27 Last Admin: 12/15/17 19:29 Dose: Not Given Potassium Chloride (Klor-Con M20) 40 meq PO ONETIME ONE Stop: 12/15/17 19:30 Last Admin: 12/15/17 19:29 Dose: 40 meq - Exam General: Alert, Oriented HEENT: Pupils Equal, Pupils Reactive, EOMI, Mucous Membr. Moist/[place] Neck: Supple Lungs: Clear to Auscultation, Normal Respiratory Effort Cardiovascular: Regular Rate, Regular Rhythm GI/Abdominal Exam: Normal Bowel Sounds Back Exam: Normal Inspection Extremities: Normal Inspection, Normal Range of Motion, Non-Tender, No Pedal Edema, Normal Capillary Refill - Problem List & Annotations (1) Gastroenteritis SNOMED Code(s): 50817356 Code(s): K52.9 - NONINFECTIVE GASTROENTERITIS AND COLITIS, UNSPECIFIED Status: Acute Priority: High Current Visit: Yes (2) Hypokalemia SNOMED Code(s): 02181799 Code(s): E87.6 - HYPOKALEMIA Status: Acute Priority: High Current Visit : Yes (3) UTI (urinary tract infection) SNOMED Code(s): 11155224 Code(s): N39.0 - URINARY TRACT INFECTION, SITE NOT SPECIFIED Status: Acute Priority: High Current Visit: Yes - Problem List Review Problem List Initiated/Reviewed/Updated: Yes - My Orders Last 24 Hours: My Active Orders 12/15/17 19:30 CULTURE URINE [RM] Routine 12/15/17 19:45 Patient Status [ADT] Routine 12/15/17 21:06 Ondansetron [Zofran] 4 mg IVPUSH Q4H PRN 12/15/17 21:15 NS + KCl 20mEq/L [Normal Saline with 20 mEq KCl] 1,000 ml IV ASDIRECTED 12/15/17 21:30 Ciprofloxacin in D5W [Cipro in D5W 400 MG/200 ML] 400 mg Premix Bag 1 bag IV Q12HR 12/15/17 22:04 Patient Status [ADT] Routine Oxygen Therapy [RC] PRN VTE/DVT Education [RC] Per Unit Routine Vital Signs [RC] Q4H Resuscitation Status Routine 12/16/17 06:13 Nitroglycerin [Nitrostat] 0.4 mg SL TID PRN Polyethylene Glycol 3350 [MiraLAX] 17 gm PO DAILY PRN 12/16/17 07:00 Levothyroxine [Synthroid] 100 mcg PO ACBREAKFAST Omeprazole 20 mg PO ACBREAKFAST 12/16/17 08:00 Amiodarone [Cordarone] 200 mg PO DAILY Hydrochlorothiazide 12.5 mg PO DAILY Losartan [Cozaar] 50 mg PO BID@0800,1700 Non-Formulary Medication [NF Drug] 1 each PO BID@0800,1200 amLODIPine [Norvasc] 5 mg PO DAILY levETIRAcetam [Keppra] 500 mg PO BID@0800,1700 12/16/17 12:00 Multivitamin [Multi-Vitamin Daily] 1 tab PO DAILY@1200 12/16/17 17:00 Docusate Sodium/Sennosides [Senna Plus] 2 tab PO DAILY@1700 Melatonin 3 mg PO DAILY@1700 12/16/17 20:00 Aspirin 81 mg PO BEDTIME Magnesium Oxide [Magnesium] 500 mg PO DAILY atorvaSTATin [Lipitor] 40 mg PO BEDTIME 12/16/17 Breakfast Heart Healthy Diet [DIET]
[2017-12-16] MEDS ORDERED: MELATONIN 3 MG PO SCH (17:00)
[2017-12-16] MEDS ORDERED: SENNOSIDES PO SCH (17:00)
[2017-12-16] MEDS ORDERED: DOCUSATE SODIUM PO SCH (17:00)
[2017-12-16] MEDS ORDERED: atorvaSTATin 40 MG Tab***OWN MED PO SCH (20:00)
[2017-12-16] MEDS ORDERED: ASPIRIN 81 MG PO SCH (20:00)
[2017-12-16] MEDS ORDERED: diphenhydrAMINE 25 MG Cap PO PRN (20:40)
[2017-12-17] MEDS: NS + KCl 20mEq/L 1,000 ML IV SCH (03:31)
[2017-12-17] MEDS: LEVOTHYROXINE 100 MCG PO SCH (07:00)
[2017-12-17] MEDS: Omeprazole 20 MG Cap.CR***OWN MED PO SCH (07:00)
[2017-12-17] MEDS: AMIODARONE 200 MG PO SCH (08:00)
[2017-12-17] MEDS: HYDROCHLOROTHIAZIDE 12.5 MG PO SCH (08:00)
[2017-12-17] MEDS: ORTHO BIOTIC PO SCH ×2 (08:00→12:00)
[2017-12-17] MEDS: LEVETIRACETAM 500 MG PO SCH (08:00)
[2017-12-17] MEDS: Ciprofloxacin in D5W 400 MG in Premix Bag 1 BAG IV SCH ×2 (08:00)
--- NOTE | 2017-12-17 08:56 | CR ---
DATE OF SERVICE: 12/15/17 CLINICAL DATA: dyspnea AP CHEST: Comparison is made to a prior exam dated 07/17/17. The heart size is stable. The aorta is calcified and ectatic. The patient is status post median sternotomy. The lungs are clear. No pneumothorax. No pleural effusions. [id number] [facility]
[2017-12-17] MEDS: LOSARTAN 50 MG PO SCH (09:27)
[2017-12-17] MEDS: MULTIVITAMIN PO SCH (12:00)
--- NOTE | 2017-12-17 12:00 | PCM.DCSUM1 ---
Discharge Summary - Discharge Data Discharge Date: 12/17/17 Discharge Disposition: Home, Self-Care 01 Condition: Good - Patient Instructions Diet: Heart Healthy Diet Activity: As Tolerated Driving: Do Not Drive Showering/Bathing: May Shower Notify Provider of: Fever, Nausea and/or Vomiting - Discharge Plan Prescriptions/Med Rec: Ciprofloxacin HCl [Cipro] 500 mg PO BID #10 tablet diphenhydrAMINE [Benadryl] 25 mg PO BEDTIME PRN #30 cap PRN Reason: Insomnia Home Medications: Home Meds Levothyroxine [Synthroid] 100 mcg PO ACBREAKFAST 04/20/15 [History] Multivitamin [Multi-Vitamin Daily] 1 tab PO DAILY 04/20/15 [History] Omeprazole 20 mg PO ACBREAKFAST 04/20/15 [History] Losartan [Cozaar] 50 mg PO BID 02/11/17 [History] Magnesium Oxide [Magnesium] 500 mg PO DAILY 02/11/17 [History] Amiodarone [Cordarone] 200 mg PO DAILY 07/22/17 [History] Hydrochlorothiazide 12.5 mg PO DAILY 07/22/17 [History] amLODIPine [Norvasc] 5 mg PO DAILY 07/22/17 [History] atorvaSTATin [Lipitor] 40 mg PO BEDTIME 07/22/17 [History] Ibandronate [Boniva] 150 mg PO ASDIRECTED 07/25/17 [History] Nitroglycerin 0.4 mg SL TID PRN 07/25/17 [History] levETIRAcetam [Keppra] 500 mg PO BID 07/25/17 [History] Polyethylene Glycol 3350 [Miralax] 17 gm PO DAILY PRN 07/26/17 [History] Aspirin 81 mg PO BEDTIME tab.chew 08/10/17 [Rx] Melatonin 3 mg PO BEDTIME 12/15/17 [History] Non-Formulary Medication [NF Drug] 1 tab PO BID 12/15/17 [History] Ciprofloxacin HCl [Cipro] 500 mg PO BID #10 tablet 12/17/17 [Rx] Ondansetron [Zofran] 4 mg IVPUSH Q4H PRN vial 12/17/17 [Rx] diphenhydrAMINE [Benadryl] 25 mg PO BEDTIME PRN #30 cap 12/17/17 [Rx] Patient Handouts: Urinary Tract Infection, Adult Forms: ED Department Discharge Referrals: PCP,None [Primary Care Provider] - - Discharge Summary/Plan Comment Discharge Summary/Plan Comment: Patient counseled on routine health follow up and management. Discussed hydration and continued f/u with PCP as directed. No changes to medications. - Patient Data Vitals - Most Recent: Last Vital Signs Temp 36.6 C 12/17/17 07:34 Pulse 61 12/17/17 07:34 Resp 19 12/17/17 07:34 BP 135/50 L 12/17/17 09:27 Pulse Ox 99 12/17/17 07:34 Weight - Most Recent: 59.421 kg I&O - Last 24 hours: Intake & Output 12/16/17 12/17/17 12/17/17 22:59 06:59 14:59 Intake Total 2114 1980 Output Total 1500 2950 Balance 614 -970 Lab Results - Last 24 hrs: Laboratory Results - last 24 hr 12/17/17 12/17/17 Range/Units 07:10 07:10 WBC 6.8 (4.0-11.0) K/uL RBC 4.49 (3.80-5.80) M/uL Hgb 9.7 L (11.5-16.5) g/dL Hct 28.9 L (37.0-47.0) % MCV 64 L (76-96) fL MCH 21.6 L (27.0-32.0) pg MCHC 33.6 (31.0-35.0) g/dL RDW 16.4 H (11.0-16.0) % Plt Count 197 (150-500) K/uL MPV 9.7 (6.0-10.0) fL Neut % (Auto) 56.4 (45.0-70.0) % Lymph % (Auto) 28.5 (20.0-40.0) % Carlton % (Auto) 10.7 H (3.0-10.0) % Eos % (Auto) 3.1 (1.0-5.0) % Baso % (Auto) 1.3 H (0.0-0.5) % Neut # (Auto) 3.86 (2.00-7.50) K/uL Lymph # (Auto) 1.95 (1.50-4.00) K/uL Carlton # (Auto) 0.73 (0.20-0.80) K/uL Eos # (Auto) 0.21 (0.04-0.40) K/uL Baso # (Auto) 0.09 (0.02-0.10) K/uL Sodium 135 L (136-145) mmol/L Potassium 4.3 (3.5-5.1) mmol/L Chloride 103 (98-107) mmol/L Carbon Dioxide 29.4 (21.0-32.0) mmol/L Anion Gap 6.9 (5.0-15.0) mmol/L BUN 7 L (8-26) mg/dL Creatinine 0.77 (0.55-1.02) mg/dL Est Cr Clr Drug Dosing 36.97 mL/min Estimated GFR (MDRD) > 60 (>60) MLS/MIN BUN/Creatinine Ratio 9.1 (6-25) Glucose 102 H (74-100) mg/dL Calcium 7.8 L (8.5-10.1) mg/dL Med Orders - Current: Current Medications Amiodarone HCl (Cordarone) 200 mg PO DAILY [facility] Last Admin: 12/17/17 08:00 Dose: 200 mg Amlodipine Besylate (Norvasc) 5 mg PO DAILY [facility] Last Admin: 12/17/17 08:00 Dose: 5 mg Aspirin (Aspirin) 81 mg PO BEDTIME [facility] Last Admin: 12/16/17 20:20 Dose: 81 mg Atorvastatin Calcium (Lipitor) 40 mg PO BEDTIME [facility] Last Admin: 12/16/17 20:25 Dose: 40 mg Diphenhydramine HCl (Benadryl) 25 mg PO BEDTIME PRN PRN Reason: Insomnia Last Admin: 12/16/17 21:30 Dose: 25 mg Hydrochlorothiazide (Hydrochlorothiazide) 12.5 mg PO DAILY [facility] Last Admin: 12/17/17 08:00 Dose: 12.5 mg Potassium Chloride/Sodium Chloride (Normal Saline With 20 Meq Kcl) 1,000 mls @ 125 mls/hr IV ASDIRECTED [facility] Last Admin: 12/17/17 03:31 Dose: 125 mls/hr Ciprofloxacin/Dextrose 400 mg/ (Premix) 200 mls @ 200 mls/hr IV Q12HR [facility] Last Admin: 12/17/17 08:00 Dose: 100 mls/hr Levetiracetam (Keppra) 500 mg PO BID@0800,1700 [facility] Last Admin: 12/17/17 08:00 Dose: 500 mg Levothyroxine Sodium (Synthroid) 100 mcg PO ACBREAKFAST [facility] Last Admin: 12/17/17 07:00 Dose: 100 mcg Losartan Potassium (Cozaar) 50 mg PO BID@0800,1700 [facility] Last Admin: 12/17/17 09:27 Dose: 50 mg Melatonin (Melatonin) 3 mg PO DAILY@1700 [facility] Last Admin: 12/16/17 20:00 Dose: Not Given Nitroglycerin (Nitrostat) 0.4 mg SL TID PRN PRN Reason: chest pain (Magnesium Oxide [ Magnesium] 500 Mg) *Own Med 500 mg PO DAILY [facility] Last Admin: 12/17/17 08:00 Dose: 500 mg (Multivitamin [Multi -Vitamin Daily] 1 Tab)Own Med 1 tab PO DAILY@1200 [facility] Last Admin: 12/16/17 12:00 Dose: 1 tab Ortho-Biotic Own (Med) 1 each PO BID@0800,1200 [facility] Last Admin: 12/17/17 08:00 Dose: 1 each Omeprazole (Omeprazole) 20 mg PO ACBREAKFAST [facility] Last Admin: 12/17/17 07:00 Dose: 20 mg Ondansetron HCl (Zofran) 4 mg IVPUSH Q4H PRN PRN Reason: Nausea/Vomiting Polyethylene Glycol (Miralax) 17 gm PO DAILY PRN PRN Reason: Constipation Senna/Docusate Sodium (Senna Plus) 2 tab PO DAILY@1700 [facility] Last Admin: 12/16/17 17:11 Dose: 2 tab Sodium Chloride (Saline Flush) 10 ml FLUSH ASDIRECTED PRN PRN Reason: Keep Vein Open Discontinued Medications Sodium Chloride (Normal Saline) 1,000 mls @ 1,000 mls/hr IV ASDIRECTED [facility] Last Admin: 12/15/17 19:00 Dose: 1,000 mls/hr Ciprofloxacin/Dextrose 400 mg/ (Premix) 200 mls @ 200 mls/hr IV Q12HR [facility] Ciprofloxacin/Dextrose (Cipro In D5w 400 Mg/200 Ml) Confirm Administered Dose 200 mls @ as directed .ROUTE .STK-MED ONE Stop: 12/15/17 21:38 Last Admin: 12/16/17 01:42 Dose: Not Given Potassium Chloride (Klor-Con M20) Confirm Administered Dose 40 meq .ROUTE .STK- MED ONE Stop: 12/15/17 19:27 Last Admin: 12/15/17 19:29 Dose: Not Given Potassium Chloride (Klor-Con M20) 40 meq PO ONETIME ONE Stop: 12/15/17 19:30 Last Admin: 12/15/17 19:29 Dose: 40 meq *Q Meaningful Use (DIS) - VTE *Q VTE Criteria *Q: - Stroke *Q Stroke Criteria *Q: - AMI *Q AMI Criteria *Q:
[2017-12-17 13:45] VITALS: BP 131/54
== END 2017-12-17 13:49 | disposition home or self-care (01) ==
LOC: LB.ED 18:12 → UNDOADMOB 20:00 → LB.MS 20:00
PROVIDERS: ADMIT Family Medicine; ATTEND Family Medicine
DX: K52.9 Noninfective gastroenteritis and colitis, unspecified (principal); E87.6 Hypokalemia; N39.0 Urinary tract infection, site not specified; D64.9 Anemia, unspecified; I10 Essential (primary) hypertension; E78.00 Pure hypercholesterolemia, unspecified; I48.91 Unspecified atrial fibrillation; F41.9 Anxiety disorder, unspecified; I25.2 Old myocardial infarction; Z88.8 Allergy status to other drugs, medicaments and biological substances; Z79.82 Long term (current) use of aspirin; Z79.899 Other long term (current) drug therapy
CPT/HCPCS: 36415; 71045; 80048; 80053; 81001; 84484; 85025; 87086; 87088; 87186; 93005; 96360; 96361; 96365; 96366; 96374; 99219; 99224; 99285-25; A0425; A0429; A9270-GY; G0378; J0744; J3480; J7030

== ENCOUNTER 2018-01-28 07:08 | Day surgery (SDC) | payer MEDICARE, BC ==
[2018-01-28] MEDS: Lactated Ringers 1,000 ML IV SCH (08:05)
[2018-01-28] MEDS: ceFAZolin 1 GM Vial IM ONE (09:20)
[2018-01-28] MEDS ORDERED: Propofol 200 MG/20 ML SDV ONE (09:25)
[2018-01-28 13:06] VITALS: BP 176/76
--- NOTE | 2018-02-08 12:19 | OR ---
DATE OF OPERATION: 01/28/2018 PREOPERATIVE DIAGNOSES: 1. Right long trigger finger. 2. Right long flexor tendon sheath ganglion cyst. POSTOPERATIVE DIAGNOSES: 1. Right long trigger finger. 2. Right long flexor tendon sheath ganglion cyst. PROCEDURES: 1. Right long trigger finger release. 2. Right long flexor tendon sheath ganglion cyst excision. ANESTHESIA: MAC. TRAVELING AUDITOR: Amilcar Linton RN SPECIMENS: None. DRAINS: None. ESTIMATED BLOOD LOSS: Minimal. COMPLICATIONS: None apparent. DESCRIPTION OF PROCEDURE: After informed consent was obtained, the patient was brought to the operating room where the right UE was prepped and draped sterilely. A midline incision was opened in its entirety. We extended the incision distally to the metacarpal phalangeal flexion crease. We identified the cyst and excised it, copiously irrigated and closed with 4- 0 nylon. Sterile dressings were applied. The patient was brought to the recovery room in stable condition having tolerated the procedure well with no apparent complications. JONO/FLACO /[id number]
== END 2018-01-28 12:25 | disposition home or self-care (01) ==
LOC: LB.SDS 07:08
PROVIDERS: ATTEND Orthopaedic Surgery
DX: M65.331 Trigger finger, right middle finger (principal); M67.441 Ganglion, right hand; I25.10 Atherosclerotic heart disease of native coronary artery without angina pectoris; E03.9 Hypothyroidism, unspecified; K21.9 Gastro-esophageal reflux disease without esophagitis; E78.5 Hyperlipidemia, unspecified; I10 Essential (primary) hypertension; F51.04 Psychophysiologic insomnia; J30.2 Other seasonal allergic rhinitis; Z88.1 Allergy status to other antibiotic agents; Z79.82 Long term (current) use of aspirin; Z79.899 Other long term (current) drug therapy
CPT/HCPCS: J0690; J2704; J7120

== ENCOUNTER 2020-03-13 10:58 | Inpatient (IN) | payer MEDICARE, BC ==
[2020-03-13] MEDS: Sodium Chloride 0.9% 10 ML Syringe FLUSH PRN ×2 (11:15→20:27)
[2020-03-13] MEDS ORDERED: Aspirin 81 MG Tab.Chew PO ONE (11:27)
[2020-03-13] MEDS ORDERED: Diltiazem 100 MG in Sodium Chloride 0.9% 100 ML IV SCH (11:30)
--- NOTE | 2020-03-13 11:43 | EDM.PDOC ---
ED HPI GENERAL MEDICAL PROBLEM - General Chief Complaint: Cardiovascular Problem Stated Complaint: Heart Palpations Time Seen by Provider: 03/13/20 10:58 Source of Information: Reports: Patient, EMS History Limitations: Reports: No Limitations - History of Present Illness INITIAL COMMENTS - FREE TEXT/NARRATIVE: Liliane presents today for evaluation of palpitations. She states she was fine until midnight. This is the typical discomfort that she gets when she goes into atrial fibrillation. She is quite certain this happened at midnight, and describes this as "a pounding". She actually denies any chest pain, orthopnea, paroxysmal nocturnal dyspnea, recent illness, fever, or cough. She has had no issues with recent GI concerns or nausea. She has felt well and has been taking all of her medicines. She thought things would run their course. She is certain that after a couple of hours, her symptoms improved to the point that she was able to sleep the rest of the night. She got up around 8:00. She felt like the pounding was worse when she was standing. She otherwise denies any further palliating or provoking factors. She is never been defibrillated. It sounds like usually she spontaneously converts into normal sinus rhythm. She actually had an implantable "security monitor" and it sounds like this loop recorder was removed a while back. She notes that findings that would come back 3 days later that her unit coordinator would describe to her, where the exact same things that she verbalized to him at the time of the event. She has never had any real presyncope or more urgent symptoms when she goes into atrial fibrillation "ever". She verbalizes a preference to be DNR. She declines anticoagulation due to history of a "brain bleed", and usually takes daily baby aspirin in the evening. 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: Home Treatments Left Hip Pain Score (Numeric/FACES): 2 - Related Data Allergies Allergy/AdvReac Type Severity Reaction Status Date / Time clopidogrel [From Plavix] Allergy Bleeding Verified 10/15/19 03:27 rivaroxaban [From Xarelto] Allergy Bleeding Verified 10/15/19 03:27 Home Meds: Home Meds Levothyroxine [Synthroid] 112 mcg PO ACBREAKFAST 04/20/15 [History] Multivitamin [Multi-Vitamin Daily] 1 tab PO DAILY 04/20/15 [History] Omeprazole 20 mg PO ACBREAKFAST 04/20/15 [History] Losartan [Cozaar] 50 mg PO BID 02/11/17 [History] Magnesium Oxide [Magnesium] 500 mg PO DAILY 02/11/17 [History] amLODIPine [Norvasc] 5 mg PO DAILY 07/22/17 [History] atorvaSTATin [Lipitor] 40 mg PO BEDTIME 07/22/17 [History] hydroCHLOROthiazide [Hydrochlorothiazide] 25 mg PO DAILY 07/22/17 [History] Ibandronate [Boniva] 150 mg PO ASDIRECTED 07/25/17 [History] Nitroglycerin 0.4 mg SL TID PRN 07/25/17 [History] levETIRAcetam [Keppra] 500 mg PO BID 07/25/17 [History] Polyethylene Glycol 3350 [Miralax] 17 gm PO DAILY PRN 07/26/17 [History] Aspirin 81 mg PO BEDTIME tab.chew 08/10/17 [Rx] Melatonin 3 mg PO BEDTIME 12/15/17 [History] Non-Formulary Medication [NF Drug] 1 tab PO BID 12/15/17 [History] diphenhydrAMINE [Benadryl] 25 mg PO BEDTIME PRN #30 cap 12/17/17 [Rx] Calcium Carbonate/Vitamin D3 [Calcium 1,000 + D3 Caplet] 1 each PO BID 10/15/19 [History] Carbamide Peroxide [Debrox] 1 drop EARBOTH DAILY 10/15/19 [History] Docusate Sodium [Stool Softener] 10/15/19 [History] Erythromycin Base [Erythromycin] 1 drop EYEBOTH DAILY 10/15/19 [History] Glucosam/Chond-MSM 2/C/D3/Octavio [Hjhpvhrkyz-Rzginefcfha-ZIH] 1 tab PO DAILY 10/15 [History] Lactobacillus 3/Fos/Pantethine [Probiotic & Acidophilus] 1 tab PO DAILY [History] Menthol/Zinc Oxide [Calmoseptine] 10/15/19 [History] Propylene Glycol/PEG 400/Pf [Systane Ultra 0.4-0.3% Eye Drp] 1 drop EYEBOTH DAILY 10/15/19 [History] Past Medical History HEENT History: Reports: Impaired Vision Other HEENT History: 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 Can't pass vision test for driving- has to wear glasses for driving but no problem reading signs etc. Cardiovascular History: Reports: Afib, Bypass, High Cholesterol, Hypertension, PR Other Cardiovascular History: Has history of aortic stenosis, history of triple bypass surgery. Implant EKG. Constricted aorta. Respiratory History: Reports: None Gastrointestinal History: Reports: Diverticulosis, Hiatal Hernia Other Gastrointestinal History: History of mass at the top of her stomach, had a gastro or colon (patient not sure which), also had barium x-ray. Neither showed anything and was found to be benign. Also has diverticuli in colon. 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: Musculoskeletal History: Reports: Fracture, Osteoporosis Other Musculoskeletal History: Osteoarthritis, fx R humerous, pelvis, tear in R shoulder tendon, trigger finger middle fingers L hand starting on R Neurological History: Reports: None, CVA, Other (See Below) Other Neuro History: Cerebral Hemorrhage Psychiatric History: Reports: Anxiety Endocrine/Metabolic History: Reports: Other (See Below) Other Endocrine/Metabolic History: Josseline's thryoiditis Hematologic History: Reports: Anemia, Blood Transfusion(s) Other Hematologic History: Anemia has had 7 transfusions between labor and heart surgery. Thalassanemia/thalassemia Immunologic History: Reports: None Oncologic (Cancer) History: Reports: Other (See Below) Other Oncologic History: Basal cell in L eye Dermatologic History: Reports: Other (See Below) Other Dermatologic History: Basal cell was in left eye. - Infectious Disease History Infectious Disease History: Reports: Chicken Pox, Measles, Mumps - Past Surgical History GI Surgical History: Reports: Colonoscopy Female Surgical History: Reports: None Neurological Surgical History: Reports: None Musculoskeletal Surgical History: Reports: Other (See Below) Other Musculoskeletal Surgeries/Procedures:: Right trigger finger repair 02/10 Social & Family History - Family History Family Medical History: Noncontributory - Caffeine Use Caffeine Use: Reports: Coffee Other Caffeine Use: decafinated 1-2 cups for breakfast ED ROS GENERAL - Review of Systems Review Of Systems: Comprehensive ROS is negative, except as noted in HPI. ED EXAM, GENERAL - Physical Exam Exam: See Below Exam Limited By: No Limitations General Appearance: Alert, WD/WN, No Apparent Distress Eye Exam: Bilateral Eye: EOMI Nose: Normal Inspection Head: Atraumatic, Normocephalic Neck: Supple, Full Range of Motion Respiratory/Chest: No Respiratory Distress, Lungs Clear, Normal Breath Sounds Cardiovascular: Tachycardia, Irregularly Irregular. No: No Murmur, Systolic Murmur GI/Abdominal: Normal Bowel Sounds, Soft, Non-Tender Back Exam: Normal Inspection, Full Range of Motion Extremities: Normal Inspection, Normal Range of Motion, Non-Tender, No Pedal Edema, Normal Capillary Refill Neurological: Alert, Oriented, Normal Cognition Psychiatric: Normal Affect, Normal Mood Skin Exam: Warm, Dry, Intact Course - Orders/Labs/Meds Orders: Active Orders 24 hr Category Date Time Status Patient Status [ADT] Routine ADT 03/13/20 11:30 Ordered Cardiac Monitoring [RC] CONTINUOUS Care 03/13/20 11:31 Ordered EKG Documentation Completion [RC] ASDIRECTED Care 03/13/20 11:26 Ordered Up to Chair [RC] ASDIRECTED Care 03/13/20 11:30 Ordered VTE/DVT Education [RC] Per Unit Routine Care 03/13/20 11:30 Ordered Vital Signs [RC] Q4H Care 03/13/20 11:30 Ordered Regular Diet [DIET] Diet 03/13/20 Lunch Ordered B-TYPE NATRIURETIC PEPTIDE,BNP [CHEM] Routine Lab 03/13/20 11:25 Ordered C-REACTIVE PROTEIN [CHEM] Stat Lab 03/13/20 11:25 Ordered CBC WITH AUTO DIFF [HEME] Stat Lab 03/13/20 11:25 Ordered COMPREHENSIVE METABOLIC PN,CMP [CHEM] Stat Lab 03/13/20 11:25 Ordered MAGNESIUM [CHEM] Stat Lab 03/13/20 11:27 Ordered TROPONIN I [CHEM] Stat Lab 03/13/20 11:25 Ordered TSH ULTRASENSITIVE [CHEM] Stat Lab 03/13/20 11:27 Ordered Diltiazem 100 MG in Normal Saline Adv @ 5 MG/HR(100ml) Med 03/13/20 11:30 Ordered Diltiazem [Cardizem] 100 mg Sodium Chloride 0.9% [Normal Saline] 100 ml IV TITRATE Sodium Chloride 0.9% [Saline Flush] Med 03/13/20 11:28 Active 10 ml FLUSH ASDIRECTED PRN Saline Lock Insert [OM.PC] Routine Oth 03/13/20 11:28 Ordered Resuscitation Status Routine Resus Stat 03/13/20 11:30 Ordered EKG 12 Lead [EK] Stat Ther 03/13/20 11:25 Ordered Medication Orders Diltiazem HCl 100 mg/ Sodium (Chloride) 100 mls @ 5 mls/hr IV TITRATE PAMELA; Protocol Sodium Chloride (Saline Flush) 10 ml FLUSH ASDIRECTED PRN PRN Reason: Keep Vein Open Meds: Medications Generic Name Dose Route Start Last Admin Trade Name Freq PRN Reason Stop Dose Admin Diltiazem HCl 100 mg/ Sodium 100 mls @ 5 mls/hr 03/13/20 11:30 Chloride IV TITRATE PAMELA Protocol 5 MG/HR Sodium Chloride 10 ml 03/13/20 11:28 Saline Flush FLUSH ASDIRECTED PRN Keep Vein Open Discontinued Medications Generic Name Dose Route Start Last Admin Trade Name Freq PRN Reason Stop Dose Admin Aspirin 162 mg 03/13/20 11:27 Aspirin PO 03/13/20 11:28 ONETIME ONE Departure - Departure Time of Disposition: 10:30 Disposition: Admitted As Inpatient 66 Condition: Good Clinical Impression: Paroxysmal atrial fibrillation with rapid ventricular response Instructions: Atrial Fibrillation - My Orders Last 24 Hours: My Active Orders 03/13/20 11:25 B-TYPE NATRIURETIC PEPTIDE,BNP [CHEM] Routine C-REACTIVE PROTEIN [CHEM] Stat CBC WITH AUTO DIFF [HEME] Stat COMPREHENSIVE METABOLIC PN,CMP [CHEM] Stat TROPONIN I [CHEM] Stat EKG 12 Lead [EK] Stat 03/13/20 11:26 EKG Documentation Completion [RC] ASDIRECTED 03/13/20 11:27 MAGNESIUM [CHEM] Stat TSH ULTRASENSITIVE [CHEM] Stat 03/13/20 11:28 Sodium Chloride 0.9% [Saline Flush] 10 ml FLUSH ASDIRECTED PRN Saline Lock Insert [OM.PC] Routine 03/13/20 11:30 Patient Status [ADT] Routine Up to Chair [RC] ASDIRECTED VTE/DVT Education [RC] Per Unit Routine Vital Signs [RC] Q4H Diltiazem 100 MG in Normal Saline Adv @ 5 MG/HR(100ml) Diltiazem [Cardizem] 100 mg Sodium Chloride 0.9% [Normal Saline] 100 ml IV TITRATE Resuscitation Status Routine 03/13/20 11:31 Cardiac Monitoring [RC] CONTINUOUS 03/13/20 Lunch Regular Diet [DIET] - Assessment/Plan Last 24 Hours: My Active Orders 03/13/20 11:25 B-TYPE NATRIURETIC PEPTIDE,BNP [CHEM] Routine C-REACTIVE PROTEIN [CHEM] Stat CBC WITH AUTO DIFF [HEME] Stat COMPREHENSIVE METABOLIC PN,CMP [CHEM] Stat TROPONIN I [CHEM] Stat EKG 12 Lead [EK] Stat 03/13/20 11:26 EKG Documentation Completion [RC] ASDIRECTED 03/13/20 11:27 MAGNESIUM [CHEM] Stat TSH ULTRASENSITIVE [CHEM] Stat 03/13/20 11:28 Sodium Chloride 0.9% [Saline Flush] 10 ml FLUSH ASDIRECTED PRN Saline Lock Insert [OM.PC] Routine 03/13/20 11:30 Patient Status [ADT] Routine Up to Chair [RC] ASDIRECTED VTE/DVT Education [RC] Per Unit Routine Vital Signs [RC] Q4H Diltiazem 100 MG in Normal Saline Adv @ 5 MG/HR(100ml) Diltiazem [Cardizem] 100 mg Sodium Chloride 0.9% [Normal Saline] 100 ml IV TITRATE Resuscitation Status Routine 03/13/20 11:31 Cardiac Monitoring [RC] CONTINUOUS 03/13/20 Lunch Regular Diet [DIET]
[2020-03-13] MEDS ORDERED: Sodium Chloride 0.9% 500 ML IV SCH (12:15)
[2020-03-13] MEDS ORDERED: Magnesium Sulfate/Water 2 GM in Premix Bag 1 BAG IV ONE (13:02)
[2020-03-13] MEDS ORDERED: Potassium Chloride 20 MEQ Tab.ER PO ONE (13:04)
--- NOTE | 2020-03-13 13:13 | PCM.SN ---
- Free Text/Narrative Note: Liliane feels just fine. She denies any chest pressure or heaviness. She is really not concerned about her elevated troponin. She notes that her heartbeat is going down to a normal rate. She is not really interested in doing anything further in regard to her positive troponin, and is comfortable with watching this here for now. Explained that we will continue with potassium and magnesium repletion, and continue her low-dose Cardizem drip which will hopefully allow for adequate rate control. Plan on discontinuing this when she hopefully will spontaneously cardiovert to normal sinus rhythm soon. Could consider recheck of her troponin and/or electrolytes in the morning. At this point she feels like she could be ambulating without issue, and and is certainly allowed to do so if she chooses, and she just finished eating a lunch , and has no other concerns. Questions were addressed and vitals continue to normalize in terms of her rapid ventricular response, and otherwise appears excellent. TeleHealth - TeleHealth Patient Service Facility: [facility] Informed Consent: Telemedicine Audio/Visual Informed Consent: The risks, benefits, and alternatives to the telehealth visit were explained to the patient and the patient consented to this modality of care. The telehealth visit was carried out via a secure, web-based conferencing system. This telemedicine service was a real-time, two-way interactive video and communication between the patient and the provider. All the parties involved were identified and approved by the patient prior to the visit. Any physical exam was assisted by the patient. Unless noted otherwise, the provider was located at their usual clinic location , and the patient was at their place of residence. Patient identity was confirmed by having the patient state their name and date of . All communications with the patient (verbal, audiovisual, and written) were documented in the patients medical record per documentation standards.
[2020-03-13] MEDS: Magnesium Sulfate/D5W 1 GM/100 ML Premix Bag IV SCH ×2 (13:53→14:56)
[2020-03-13] MEDS ORDERED: Aspirin 81 MG Tab.Chew PO SCH (20:00)
[2020-03-13] MEDS ORDERED: Melatonin 3 MG Tab PO SCH (20:00)
[2020-03-13] MEDS ORDERED: levETIRAcetam 500 MG Tab ONE (20:14)
[2020-03-13] MEDS ORDERED: atorvaSTATin 10 MG Tab ONE (20:14)
[2020-03-13] MEDS: Calcium Carbonate/Vitamin D3 1500 MG-400 Units Tab PO SCH (20:26)
[2020-03-13] MEDS: levETIRAcetam 500 MG Tab PO SCH (20:26)
[2020-03-13] MEDS ORDERED: atorvaSTATin 40 MG Tab PO SCH (21:15)
[2020-03-14] MEDS ORDERED: Levothyroxine 112 MCG Tab PO SCH (07:00)
[2020-03-14 07:36] VITALS: BP 143/75; PULSE 72
[2020-03-14] MEDS: Calcium Carbonate/Vitamin D3 1500 MG-400 Units Tab PO SCH (07:44)
[2020-03-14] MEDS: levETIRAcetam 500 MG Tab PO SCH (07:45)
[2020-03-14] MEDS ORDERED: Losartan 50 MG Tab PO SCH (08:00)
[2020-03-14] MEDS ORDERED: Lactobacillus Acidophilus/Lactobacillus Sporogenes (Probiotic) Tab PO SCH (08:00)
[2020-03-14] MEDS ORDERED: Multivitamins with Iron/Calcium/Folic Acid/Minerals Tab PO SCH (08:00)
[2020-03-14] MEDS ORDERED: Hydrochlorothiazide 25 MG Tab PO SCH (08:00)
[2020-03-14] MEDS ORDERED: Chondroitin/Glucosamine Cap PO SCH (08:00)
[2020-03-14] MEDS ORDERED: amLODIPine 5 MG Tab PO SCH (08:00)
[2020-03-14] MEDS ORDERED: Triamcinolone Acetonide 40 MG/ML 1 ML SDV ONE ×2 (10:07→10:47)
--- NOTE | 2020-03-17 01:01 | PCM.DCSUM1 ---
Discharge Summary - Hospital Course Brief History: Liliane presents with recurrent paroxysmal atrial fibrillation with rapid ventricular response - Discharge Data Discharge Date: 03/14/20 Discharge Disposition: Home, Self-Care 01 Condition: Good - Referral to Home Health Primary Care Physician: PCP None - Discharge Plan Home Medications: Home Meds Levothyroxine [Synthroid] 112 mcg PO ACBREAKFAST 04/20/15 [History] Multivitamin [Multi-Vitamin Daily] 1 tab PO DAILY 04/20/15 [History] Losartan [Cozaar] 50 mg PO BID 02/11/17 [History] Magnesium Oxide [Magnesium] 500 mg PO DAILY 02/11/17 [History] amLODIPine [Norvasc] 5 mg PO DAILY 07/22/17 [History] atorvaSTATin [Lipitor] 40 mg PO BEDTIME 07/22/17 [History] hydroCHLOROthiazide [Hydrochlorothiazide] 25 mg PO DAILY 07/22/17 [History] Ibandronate [Boniva] 150 mg PO ASDIRECTED 07/25/17 [History] Nitroglycerin 0.4 mg SL TID PRN 07/25/17 [History] levETIRAcetam [Keppra] 500 mg PO BID 07/25/17 [History] polyethylene glycoL 3350 [Miralax] 17 gm PO DAILY PRN 07/26/17 [History] Aspirin 81 mg PO BEDTIME tab.chew 08/10/17 [Rx] Melatonin 3 mg PO BEDTIME 12/15/17 [History] Non-Formulary Medication [NF Drug] 1 tab PO BID 12/15/17 [History] Calcium Carbonate/Vitamin D3 [Calcium 1,000 + D3 Caplet] 1 each PO BID 10/15/19 [History] Carbamide Peroxide [Debrox] 1 drop EARBOTH DAILY PRN 10/15/19 [History] Glucosam/Chond-MSM 2/C/D3/Octavio [Vejpnkdpkf-Ezwvpibxgvr-DAP] 1 tab PO DAILY 10/15 [History] Lactobacillus 3/Fos/Pantethine [Probiotic & Acidophilus] 1 tab PO DAILY [History] Propylene Glycol/PEG 400/Pf [Systane Ultra 0.4-0.3% Eye Drp] 1 drop EYEBOTH DAILY PRN 10/15/19 [History] Patient Handouts: Atrial Fibrillation Forms: ED Department Discharge - Discharge Summary/Plan Comment DC Time >30 min.: No Discharge Summary/Plan Comment: At this point, given the COVID 19 restrictions, Liliane was encouraged to continue on her usual medications. 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 She was encouraged to come in immediately with any significant symptoms, and will otherwise watch for palpitations. Of note, she was not a candidate for aggressive management in the event of an ischemic etiology of her troponin given her history of intracranial hemorrhage. To continue with medical management, although once could certainly argue an increase in her metoprolol is warranted if this recurs or she has ongoing issues with hypertension. - General Info Subjective Update: Liliane presents for recurrent paroxysmal atrial fibrillation. We discussed whether or not, her presentation would necessitate transfer for more invasive management. She states that she is 89-years old, and at this point, would like to stay here in her local community if possible. She particularly has had persistent about being transferred given the potential for ongoing coronavirus issues. She really denies any ongoing issues with chest discomfort, shortness of breath, nausea, and overall felt well. She was provided with a diltiazem drip. This gradually led to, improving rate control. She subsequently cardioverted. She was observed overnight, and did well, with no other concerns aside that of getting an injection of her left SI joint and right shoulder. - Patient Data Vitals - Most Recent: Last Vital Signs Temp 97.5 F 03/14/20 07:10 Pulse 72 03/14/20 07:10 Resp 18 03/14/20 07:10 BP 143/75 H 03/14/20 07:44 Pulse Ox 100 03/14/20 07:10 Weight - Most Recent: 131 lb 9.6 oz CHEN Results - Last 24 hrs: Microbiology 03/13/20 14:12 Urine Culture - Final Urine, Voided NO GROWTH AFTER 2 DAYS Med Orders - Current: Current Medications Discontinued Medications Amlodipine Besylate (Norvasc) 5 mg PO DAILY [facility] Last Admin: 03/14/20 07:44 Dose: 5 mg Aspirin (Aspirin) 162 mg PO ONETIME ONE Stop: 03/13/20 11:28 Last Admin: 03/13/20 11:23 Dose: 162 mg Aspirin (Aspirin) 81 mg PO BEDTIME [facility] Last Admin: 03/13/20 20:30 Dose: Not Given Atorvastatin Calcium (Lipitor) 40 mg PO BEDTIME [facility] Last Admin: 03/13/20 20:40 Dose: 40 mg Atorvastatin Calcium (Lipitor) Confirm Administered Dose 10 mg .ROUTE .STK-MED ONE Stop: 03/13/20 20:15 Last Admin: 03/13/20 20:24 Dose: Not Given Calcium Carbonate (Caltrate 600+D 1500 Mg-400 Units) 1 tab PO BID [facility] Last Admin: 03/14/20 07:44 Dose: 1 tab Glucosamine/Chondroitin (Glucosamine-Chondroitin 500-400 Capsule) 1 cap PO DAILY [facility] Last Admin: 03/14/20 07:45 Dose: Not Given Hydrochlorothiazide (Hydrochlorothiazide) 25 mg PO DAILY [facility] Last Admin: 03/14/20 07:44 Dose: 25 mg Diltiazem HCl 100 mg/ Sodium (Chloride) 100 mls @ 5 mls/hr IV TITRATE PAMELA; Protocol Last Admin: 03/13/20 12:04 Dose: 5 mg/hr, 5 mls/hr Sodium Chloride (Normal Saline) 500 mls @ 0 mls/hr IV ASDIRECTED [facility] Last Admin: 03/13/20 12:08 Dose: 30 mls/hr Lactobacillus Acidophilus (Acidolphilus Extra Strength) 1 tab PO DAILY [facility] Last Admin: 03/14/20 07:44 Dose: 1 tab Levetiracetam (Keppra) 500 mg PO BID@0800,1700 [facility] Last Admin: 03/14/20 07:45 Dose: 500 mg Levetiracetam (Keppra) Confirm Administered Dose 500 mg .ROUTE .STK-MED ONE Stop: 03/13/20 20:15 Last Admin: 03/13/20 20:25 Dose: Not Given Levothyroxine Sodium (Levothyroxine) 112 mcg PO ACBREAKFAST [facility] Last Admin: 03/14/20 06:53 Dose: 112 mcg Losartan Potassium (Cozaar) 50 mg PO BID@0800,1700 [facility] Last Admin: 03/14/20 07:44 Dose: 50 mg Magnesium Oxide (Magnesium Oxide) 500 mg PO DAILY [facility] Last Admin: 03/14/20 07:45 Dose: 500 mg Magnesium Sulfate/Dextrose (Magnesium Sulfate In D5w 100 Premix) 1 gm IV Q20M [facility] Stop: 03/13/20 13:51 Last Admin: 03/13/20 14:56 Dose: 1 gm Melatonin (Melatonin) 3 mg PO BEDTIME [facility] Last Admin: 03/13/20 20:25 Dose: 3 mg Multivitamins/Minerals (Thera M Plus) 1 tab PO DAILY [facility] Last Admin: 03/14/20 07:44 Dose: 1 tab Potassium Chloride (Klor-Con M20) 40 meq PO ONETIME ONE Stop: 03/13/20 13:05 Last Admin: 03/13/20 13:23 Dose: 40 meq Sodium Chloride (Saline Flush) 10 ml FLUSH ASDIRECTED PRN PRN Reason: Keep Vein Open Last Admin: 03/13/20 20:27 Dose: 10 ml Triamcinolone Acetonide (Kenalog-40) Confirm Administered Dose 40 mg .ROUTE .STK -MED ONE Stop: 03/14/20 10:08 Last Admin: 03/14/20 11:30 Dose: 40 mg Triamcinolone Acetonide (Kenalog-40) Confirm Administered Dose 40 mg .ROUTE .STK -MED ONE Stop: 03/14/20 10:48 Last Admin: 03/14/20 11:35 Dose: 40 mg - Exam General: Reports: Alert, Oriented HEENT: Reports: Pupils Equal, Pupils Reactive, EOMI, Mucous Membr. Moist/[place] Neck: Reports: Supple. Denies: JVD Lungs: Reports: Clear to Auscultation, Normal Respiratory Effort Cardiovascular: Reports: Regular Rate, Regular Rhythm, Murmurs (Grade 2 out of 6 systolic murmur heard best to auscultation over the left sternal border) GI/Abdominal Exam: Normal Bowel Sounds, Soft, Non-Tender Back Exam: Reports: Normal Inspection Extremities: Normal Inspection, Normal Range of Motion, Non-Tender, No Pedal Edema, Normal Capillary Refill, Other (Using standard sterile technique, her right shoulder was injected with 9 mL's of bupivacaine and 40 mg of Kenalog in the usual fashion subacromially. She tolerated this quite well. With similar technique and medication preparation, her left SI joint was subsequently injected as well. She tolerated these surprisingly well, and was noted to actually get up at the bedside and dance afterwards.) Skin: Reports: Warm, Dry, Intact Wound/Incisions: Reports: Healing Well Neurological: Reports: No New Focal Deficit Psy/Mental Status: Reports: Alert, Normal Affect, Normal Mood
[2020-03-17 08:08] LABS: IRON BIND.CAP.(TIBC) 250 ug/dL (250-450); IRON SATURATION 26 % (15-55); IRON, SERUM 66 ug/dL (27-139); UIBC 184 ug/dL (118-369)
== END 2020-03-14 12:45 | disposition home or self-care (01) | DRG 310 ==
LOC: LB.ED 10:58 → LB.MS 11:30 → OBSVTOIN 11:50 → LB.MS 11:50 → UNDOADMOB 11:50 → INTOOBSV 11:50 → LB.MS 19:42 → UNDODISIN 03-14 12:45
PROVIDERS: ADMIT Family Medicine; ATTEND Family Medicine
DX: I48.0 Paroxysmal atrial fibrillation (principal); H54.7 Unspecified visual loss; Z95.1 Presence of aortocoronary bypass graft; E78.00 Pure hypercholesterolemia, unspecified; I10 Essential (primary) hypertension; M19.90 Unspecified osteoarthritis, unspecified site; I35.0 Nonrheumatic aortic (valve) stenosis; K44.9 Diaphragmatic hernia without obstruction or gangrene; D64.9 Anemia, unspecified; F41.9 Anxiety disorder, unspecified; R79.89 Other specified abnormal findings of blood chemistry; M81.0 Age-related osteoporosis without current pathological fracture; E06.3 Autoimmune thyroiditis; Z85.828 Personal history of other malignant neoplasm of skin; Z88.8 Allergy status to other drugs, medicaments and biological substances; Z79.82 Long term (current) use of aspirin; Z79.890 Hormone replacement therapy; Z79.899 Other long term (current) drug therapy; I25.2 Old myocardial infarction; Z86.73 Personal history of transient ischemic attack (TIA), and cerebral infarction without residual deficits
CPT/HCPCS: 36415; 80048; 80053; 81001; 82728; 83540; 83550; 83735; 83880; 84443; 84484; 85025; 86140; 87086; 93005; 99222; 99238; 99285-25; A0425; A0429; A9270-GY; J3301; J3475; J3490; J7030; J7050

== ENCOUNTER 2020-05-21 11:03 | Observation (INO) | payer MEDICARE, BC ==
--- NOTE | 2020-05-21 11:58 | EDM.PDOC ---
ED HPI GENERAL MEDICAL PROBLEM - General Chief Complaint: Cardiovascular Problem Stated Complaint: CHEST ISSUES Time Seen by Provider: 05/21/20 11:45 Source of Information: Reports: Patient History Limitations: Reports: No Limitations - History of Present Illness INITIAL COMMENTS - FREE TEXT/NARRATIVE: This is a 89yo F here for palpitations last night. She notes the symptoms were persistent for a few hours and resolved. She denies any lightheadedness or other concerns at the time and no new concerns at this time. She has had prior Afib with RVR and prior history of brain bleed with Xarelto use. She is currently on no beta-blockers and does take a baby aspirin among her other medications. She denies any fever or chills, no chest pain or shortness of breath, no other symp toms. - Related Data Allergies Allergy/AdvReac Type Severity Reaction Status Date / Time clopidogrel [From Plavix] Allergy Bleeding Verified 10/15/19 03:27 rivaroxaban [From Xarelto] Allergy Bleeding Verified 10/15/19 03:27 Home Meds: Home Meds Levothyroxine [Synthroid] 112 mcg PO ACBREAKFAST 04/20/15 [History] Multivitamin [Multi-Vitamin Daily] 1 tab PO DAILY 04/20/15 [History] Losartan [Cozaar] 50 mg PO BID 02/11/17 [History] Magnesium Oxide [Magnesium] 500 mg PO DAILY 02/11/17 [History] amLODIPine [Norvasc] 5 mg PO DAILY 07/22/17 [History] atorvaSTATin [Lipitor] 40 mg PO BEDTIME 07/22/17 [History] hydroCHLOROthiazide [Hydrochlorothiazide] 25 mg PO DAILY 07/22/17 [History] Ibandronate [Boniva] 150 mg PO ASDIRECTED 07/25/17 [History] Nitroglycerin 0.4 mg SL TID PRN 07/25/17 [History] levETIRAcetam [Keppra] 500 mg PO BID 07/25/17 [History] polyethylene glycoL 3350 [Miralax] 17 gm PO DAILY PRN 07/26/17 [History] Aspirin 81 mg PO BEDTIME tab.chew 08/10/17 [Rx] Melatonin 3 mg PO BEDTIME 12/15/17 [History] Non-Formulary Medication [NF Drug] 1 tab PO BID 01/20/18 [History] Calcium Carbonate/Vitamin D3 [Calcium 1,000 + D3 Caplet] 1 each PO BID 10/15/19 [History] Carbamide Peroxide [Debrox] 1 drop EARBOTH DAILY PRN 10/15/19 [History] Glucosam/Chond-MSM 2/C/D3/Octavio [Bflopqztht-Xhxeloyysnp-OJP] 1 tab PO DAILY 10/15/19 [History] Lactobacillus 3/Fos/Pantethine [Probiotic & Acidophilus] 1 tab PO DAILY 10/15/19 [History] Propylene Glycol/PEG 400/Pf [Systane Ultra 0.4-0.3% Eye Drp] 1 drop EYEBOTH DAILY PRN 10/15/19 [History] Past Medical History HEENT History: Reports: Impaired Vision Other HEENT History: 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 Can't pass vision test for driving- has to wear glasses for driving but no problem reading signs etc. Cardiovascular History: Reports: Afib, Bypass, High Cholesterol, Hypertension, HI Other Cardiovascular History: Has history of aortic stenosis, history of triple bypass surgery. Implant EKG. Constricted aorta. Respiratory History: Reports: None Gastrointestinal History: Reports: Diverticulosis, Hiatal Hernia Other Gastrointestinal History: History of mass at the top of her stomach, had a gastro or colon (patient not sure which), also had barium x-ray. Neither showed anything and was found to be benign. Also has diverticuli in colon. 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 PULLER History: Reports: Musculoskeletal History: Reports: Fracture, Osteoporosis Other Musculoskeletal History: Osteoarthritis, fx R humerous, pelvis, tear in R shoulder tendon, trigger finger middle fingers L hand starting on R Neurological History: Reports: None, CVA, Other (See Below) Other Neuro History: Cerebral Hemorrhage Psychiatric History: Reports: Anxiety Endocrine/Metabolic History: Reports: Other (See Below) Other Endocrine/Metabolic History: Josseline's thryoiditis Hematologic History: Reports: Anemia, Blood Transfusion(s) Other Hematologic History: Anemia has had 7 transfusions between labor and heart surgery. Thalassanemia/thalassemia Immunologic History: Reports: None Oncologic (Cancer) History: Reports: Other (See Below) Other Oncologic History: Basal cell in L eye Dermatologic History: Reports: Other (See Below) Other Dermatologic History: Basal cell was in left eye. - Infectious Disease History Infectious Disease History: Reports: Chicken Pox, Measles, Mumps - Past Surgical History GI Surgical History: Reports: Colonoscopy Female Surgical History: Reports: None Neurological Surgical History: Reports: None Musculoskeletal Surgical History: Reports: Other (See Below) Other Musculoskeletal Surgeries/Procedures:: Right trigger finger repair 02/10 Social & Family History - Family History Family Medical History: Noncontributory - Tobacco Use Smoking Status *Q: Never Smoker Second Hand Smoke Exposure: No - Caffeine Use Caffeine Use: Reports: Coffee Other Caffeine Use: decafinated 1-2 cups for breakfast - Recreational Drug Use Recreational Drug Use: No ED ROS GENERAL - Review of Systems Review Of Systems: See Below Constitutional: Reports: No Symptoms HEENT: Reports: No Symptoms Respiratory: Reports: No Symptoms Cardiovascular: Reports: No Symptoms Endocrine: Reports: No Symptoms GI/Abdominal: Reports: No Symptoms : Reports: No Symptoms Musculoskeletal: Reports: No Symptoms Skin: Reports: No Symptoms ED EXAM, GENERAL - Physical Exam Exam: See Below Exam Limited By: No Limitations General Appearance: Alert, WD/WN, No Apparent Distress Ears: Normal External Exam Nose: Normal Inspection Throat/Mouth: Normal Inspection Head: Atraumatic, Normocephalic Neck: Normal Inspection, Supple, Non-Tender Respiratory/Chest: No Respiratory Distress, Lungs Clear, Normal Breath Sounds Cardiovascular: Normal Peripheral Pulses, Regular Rate, Rhythm Peripheral Pulses: 2+: Dorsalis Pedis (L), Dorsalis Pedis (R) GI/Abdominal: Normal Bowel Sounds Back Exam: Normal Inspection Extremities: Normal Inspection Neurological: Alert, Oriented, CN II-XII Intact Psychiatric: Normal Affect, Normal Mood Skin Exam: Warm, Dry, Intact Course - Vital Signs Last Recorded V/S: Last Vital Signs Temp 36.5 C 05/21/20 11:15 Pulse 83 05/21/20 12:18 Resp 18 05/21/20 12:18 BP 123/60 05/21/20 12:18 Pulse Ox 95 05/21/20 12:18 - Orders/Labs/Meds Orders: Active Orders 24 hr Category Date Time Status EKG Documentation Completion [RC] ASDIRECTED Care 05/21/20 11:25 Active Medication Orders Potassium Chloride 20 meq/ (Sodium Chloride) 1,010 mls @ 100 mls/hr IV ASDIRECTED PAMELA Labs: Laboratory Tests 05/21/20 05/21/20 Range/Units 11:25 11:30 WBC 8.3 (4.0-11.0) K/uL RBC 5.24 (3.80-5.80) M/uL Hgb 11.6 (11.5-16.5) g/dL Hct 34.3 L (37.0-47.0) % MCV 66 L (76-96) fL MCH 22.1 L (27.0-32.0) pg MCHC 33.8 (31.0-35.0) g/dL RDW 18.2 H (11.0-16.0) % Plt Count 248 (150-500) K/uL MPV 9.6 (6.0-10.0) fL Neut % (Auto) 62.9 (45.0-70.0) % Lymph % (Auto) 27.0 (20.0-40.0) % [place] % (Auto) 9.1 (3.0-10.0) % Eos % (Auto) 0.4 L (1.0-5.0) % Baso % (Auto) 0.6 H (0.0-0.5) % Neut # (Auto) 5.23 (2.00-7.50) K/uL Lymph # (Auto) 2.24 (1.50-4.00) K/uL [place] # (Auto) 0.76 (0.20-0.80) K/uL Eos # (Auto) 0.03 L (0.04-0.40) K/uL Baso # (Auto) 0.05 (0.02-0.10) K/uL Sodium 134 L (136-145) mmol/L Potassium 3.3 L (3.5-5.1) mmol/L Chloride 97 L (98-107) mmol/L Carbon Dioxide 30.6 (21.0-32.0) mmol/L Anion Gap 9.7 (5.0-15.0) mmol/L BUN 12 (8-26) mg/dL Creatinine 0.74 (0.55-1.02) mg/dL Est Cr Clr Drug Dosing 37.02 mL/min Estimated GFR (MDRD) > 60 (>60) MLS/MIN BUN/Creatinine Ratio 16.2 (6-25) Glucose 121 H (74-100) mg/dL Calcium 9.2 (8.5-10.1) mg/dL Total Bilirubin 2.6 H D (0.0-1.0) mg/dL AST 30 (15-37) U/L ALT 18 (12-78) U/L Alkaline Phosphatase 53 (46-116) U/L Troponin I 0.333 H* (0.000-0.060) ng/mL Total Protein 7.1 (6.4-8.2) g/dL Albumin 3.6 (3.4-5.0) g/dL Globulin 3.5 (2.2-4.2) g/dL Albumin/Globulin Ratio 1.0 (0.8-2.0) TSH, Ultra Sensitive 1.906 (0.358-3.740) uIU/mL Meds: Medications Generic Name Dose Route Start Last Admin Trade Name Freq PRN Reason Stop Dose Admin Potassium Chloride 20 meq/ 1,010 mls @ 100 mls/hr 05/21/20 12:45 Sodium Chloride IV ASDIRECTED PAMELA Departure - Departure Time of Disposition: 12:30 Disposition: Refer to Observation Reason for Transfer *Q: Primary PCI Indicated Condition: Fair Clinical Impression: Palpitations, Elevated troponin Sepsis Event Note (ED) - Evaluation Sepsis Screening Result: No Definite Risk - Focused Exam Vital Signs: Vital Signs Temp Pulse Resp BP Pulse Ox 05/21/20 12:18 83 18 123/60 95 05/21/20 11:15 36.5 C 79 18 129/69 94 L - Problem List & Annotations (1) Paroxysmal atrial fibrillation with rapid ventricular response SNOMED Code(s): 013199014, 036975743069846 Code(s): I48.0 - PAROXYSMAL ATRIAL FIBRILLATION Status: Chronic Current Visit: No (2) Elevated troponin SNOMED Code(s): 413753187, 832866139, 358462795 Code(s): R79.89 - OTHER SPECIFIED ABNORMAL FINDINGS OF BLOOD CHEMISTRY Status: Acute Priority: High Current Visit: Yes (3) Palpitations SNOMED Code(s): 67282825 Code(s): R00.2 - PALPITATIONS Status: Acute Priority: High Current Visit: Yes - Problem List Review Problem List Initiated/Reviewed/Updated: Yes - My Orders Last 24 Hours: My Active Orders 05/21/20 11:25 EKG Documentation Completion [RC] ASDIRECTED - Assessment/Plan Last 24 Hours: My Active Orders 05/21/20 11:25 EKG Documentation Completion [RC] ASDIRECTED Plan: Patient stable. We will refer to observation for serial troponins and telemetry. F/u Troponin in 3 hrs and as needed. Consider rate control medications and patient should f/u with Cardiology.
[2020-05-21] MEDS ORDERED: NS + KCl 20mEq/L 1,000 ML IV SCH (12:45)
[2020-05-21] MEDS: NS + KCl 20mEq/L 1,000 ML ONE (13:36)
[2020-05-21 18:43] VITALS: BP 137/71; PULSE 74
--- NOTE | 2020-05-22 16:07 | CT ---
CLINICAL DATA: History of brain bleed. UNENHANCED BRAIN CT, 21 MAY 2020: Comparison is made to a prior exam dated 24 August 2017. There is mild diffuse cerebral atrophy. There are periventricular lucencies bilaterally, consistent with small vessel ischemic changes. No masses or mass effect. No intracranial hemorrhage. No evidence of acute or subacute infarct. No osseous abnormalities. IMPRESSION: No acute intracranial abnormalities. Job: [id number] MTDD
== END 2020-05-21 19:15 ==
LOC: LB.ED 11:03 → LB.MS 12:35
PROVIDERS: ADMIT Family Medicine; ATTEND Family Medicine
DX: R00.2 Palpitations (principal); R79.89 Other specified abnormal findings of blood chemistry; I48.0 Paroxysmal atrial fibrillation; E78.00 Pure hypercholesterolemia, unspecified; I10 Essential (primary) hypertension; Z79.899 Other long term (current) drug therapy; Z88.8 Allergy status to other drugs, medicaments and biological substances
CPT/HCPCS: 36415; 70450; 80053; 84443; 84484; 85025; 93005; 96365; 96366; 96368; 99285; A0425; A0429; J0282; J3480; J7030